=== PATIENT | female | born 1950 | race Caucasian/White ===

== ENCOUNTER → 2017-11-04 | Outpatient (CLI) | payer MEDICARE, BC ==
--- NOTE | 2017-11-08 08:47 | MM ---
Reason for exam: screening (asymptomatic). Last mammogram was performed 8 years and 8 months ago. History: Patient is postmenopausal. Physical Findings: A clinical breast exam by your physician is recommended on an annual basis and results should be correlated with mammographic findings. MG 3D Screening Mammo W/Cad Bilateral CC and MLO view(s) were taken. Prior study comparison: March 14, 2009, bilateral digital screening mammogram. January 12, 2005, mammogram, performed at [facility]. The breast tissue is heterogeneously dense. This may lower the sensitivity of mammography. No suspicious abnormality. ASSESSMENT: Negative, BI-RAD 1 RECOMMENDATION: Routine screening mammogram of both breasts in 1 year.
== END | disposition home or self-care (01) ==
LOC: RADMAMWWP 14:54
PROVIDERS: ATTEND Family Medicine
DX: Z12.31 Encounter for screening mammogram for malignant neoplasm of breast (principal)
CPT/HCPCS: 77063; G0202

== ENCOUNTER → 2018-11-21 | Outpatient (CLI) | payer MEDICARE ==
--- NOTE | 2018-11-25 10:39 | MM ---
Reason for exam: screening (asymptomatic). Last mammogram was performed 1 year and 1 month ago. History: Patient is postmenopausal. MG 3D Screening Mammo W/Cad Bilateral CC and MLO view(s) were taken. Prior study comparison: November 04, 2017, bilateral MG 3d screening mammo w/cad. March 14, 2009, bilateral digital screening mammogram. The breast tissue is heterogeneously dense. This may lower the sensitivity of mammography. There are benign-appearing round bilateral breast calcifications. No discrete abnormality. ASSESSMENT: Benign, BI-RAD 2 RECOMMENDATION: Routine screening mammogram of both breasts in 1 year.
== END ==
LOC: RADMAMWWP 08:07
PROVIDERS: ATTEND Family Medicine
DX: Z12.31 Encounter for screening mammogram for malignant neoplasm of breast (principal)
CPT/HCPCS: 77063; 77067

== ENCOUNTER → 2019-12-20 | Outpatient (CLI) | payer MEDICARE ==
--- NOTE | 2019-12-24 09:04 | MM ---
Reason for exam: screening (asymptomatic). Last mammogram was performed 1 year and 1 month ago. History: Patient is postmenopausal. Physical Findings: A clinical breast exam by your physician is recommended on an annual basis and results should be correlated with mammographic findings. MG 3D Screening Mammo W/Cad Bilateral CC and MLO view(s) were taken. Prior study comparison: November 21, 2018, bilateral MG 3d screening mammo w/cad. November 04, 2017, bilateral MG 3d screening mammo w/cad. The breast tissue is heterogeneously dense. This may lower the sensitivity of mammography. No significant changes when compared with prior studies. ASSESSMENT: Benign, BI-RAD 2 RECOMMENDATION: Routine screening mammogram of both breasts in 1 year.
== END | disposition home or self-care (01) ==
LOC: RADMAMWWP 13:25
PROVIDERS: ATTEND Family Medicine
DX: Z12.31 Encounter for screening mammogram for malignant neoplasm of breast (principal)
CPT/HCPCS: 77063; 77067

== ENCOUNTER → 2021-07-02 | Outpatient (CLI) | payer MEDICARE ==
[~2021-07-02] MED LIST: DENOSUMAB 60 MG/ML 1 ML SYRINGE SQ ONE
[2021-07-02 10:37] VITALS: BP 146/85; PULSE 67; RESP 16; TEMP 97.9
== END ==
LOC: PROCWHC3 10:06
PROVIDERS: ATTEND Family Medicine
DX: M81.0 Age-related osteoporosis without current pathological fracture (principal)
CPT/HCPCS: 96372; J0897

== ENCOUNTER 2022-02-14 10:48 | Emergency (ER) | payer MEDICARE ==
[2022-02-14 10:57] VITALS: TEMP 97
--- NOTE | 2022-02-14 11:56 | XR ---
EXAMINATION TYPE: XR chest 2V DATE OF EXAM: 02/14/2022 CLINICAL HISTORY: Fall with chest and sternal pain. TECHNIQUE: Frontal and lateral views of the chest are obtained. COMPARISON: Chest x-ray April 13, 2010 FINDINGS: Mild left basilar linear scarring redemonstrated. There is no new suspicious focal air spac e opacity, pleural effusion, or pneumothorax seen. The cardiac silhouette size remains within normal limits. The osseous structures are demineralized. IMPRESSION: Mild left basilar linear scarring. No acute process identified.
--- NOTE | 2022-02-14 12:05 | ED ---
Fall HPI - General Chief Complaint: Fall Stated Complaint: fall & SOB Time Seen by Provider: 02/14/22 11:33 Source: patient, family, old records reviewed Mode of arrival: ambulatory - History of Present Illness Initial Comments: Patient is a 72-year-old female presents today with complaints of substernal discomfort and difficulty breathing. Patient reports that she fell after standing on her countertop while hanging curtains on . She reports that her sternum in the front of her chest struck the edge of the countertop. She reports it took her breath away at the moment. She was able to move her arms and denies any back or lower rib pain. Patient states today she woke up felt more short of breath and decided to come to the emergency department. She reports pain with palpation over the sternum. She denies any abdominal discomfort, changes in stools or vomiting. - Related Data Home Medications Medication Instructions Recorded Confirmed Calcium Carbonate/Vitamin D3 1 tab PO DAILY 07/02/21 07/02/21 [Calcium 500-Vit D3 5 Mcg (200 Iu)] Irbesartan/Hydrochlorothiazide 1 tab PO RT-HS 07/02/21 07/02/21 [Irbesartan-Hctz 150-12.5 mg Tb] Multivitamin [Multivitamins Adult 1 tab PO DAILY 07/02/21 07/02/21 Gummies] Previous Rx's Medication Instructions Recorded methylPREDNISolone Dose Pack 4 mg PO DIRECTED #21 tab 02/14/22 [Medrol Dose Pack] Allergies Allergy/AdvReac Type Severity Reaction Status Date / Time No Known Allergies Allergy Verified 02/14/22 10:57 Review of Systems ROS Statement: Those systems with pertinent positive or pertinent negative responses have been documented in the HPI. ROS Other: All systems not noted in ROS Statement are negative. Past Medical History Past Medical History: Hypertension Additional Past Medical History / Comment(s): Osteoporosis History of Any Multi-Drug Resistant Organisms: None Reported Past Surgical History: Joint Replacement, Orthopedic Surgery, Tubal Ligation Past Anesthesia/Blood Transfusion Reactions: No Reported Reaction Past Psychological History: No Psychological Hx Reported Smoking Status: Never smoker Past Alcohol Use History: None Reported Past Drug Use History: None Reported General Exam - General Exam Comments Initial Comments: Ur and oriented 9-year-old female. No acute distress. Limitations: no limitations General appearance: alert, in no apparent distress Head exam: Present: atraumatic, normocephalic, normal inspection Eye exam: Present: normal appearance, PERRL, EOMI. Absent: scleral icterus, conjunctival injection, periorbital swelling ENT exam: Present: normal exam, mucous membranes moist Neck exam: Present: normal inspection. Absent: tenderness, meningismus, lymphadenopathy Respiratory exam: Absent: normal lung sounds bilaterally (Patient has normal lung sounds throughout. Patient has tenderness to palpation over the mid sternum. No significant bruising noted.), respiratory distress, wheezes, rales, rhonchi, stridor Cardiovascular Exam: Present: regular rate, normal rhythm, normal heart sounds. Absent: systolic murmur, diastolic murmur, rubs, gallop, clicks GI/Abdominal exam: Present: soft, normal bowel sounds. Absent: distended, tenderness, guarding, rebound, rigid Back exam: Present: normal inspection Neurological exam: Present: alert, oriented X3, CN II-XII intact Psychiatric exam: Present: normal affect, normal mood Skin exam: Present: warm Course Vital Signs 02/14/22 02/14/22 10:52 15:07 Temperature 97.0 F L Pulse Rate 67 66 Respiratory 18 12 Rate Blood Pressure 162/84 153/93 O2 Sat by Pulse 95 97 Oximetry Medical Decision Making - Medical Decision Making 72-year-old female presents to the ER with complaints of substernal pain after fall on . She was cleaning and hanging curtains and fell after sitting on the counter top and struck the chest to the counter. Initial review of her x-rays concern for possible sternal fracture. Patient vital signs are stable. Labs and EKG reviewed and unremarkable. Patient did have a CT of the chest showing no evidence of rib fracture or sternal fracture. There is some basilar scarring. Patient was discharged with incentive spirometer and will be prescribed anti-inflammatory medication Medrol Dosepak for concern for costochondritis and sternal cartilage inflammation. Advised following up with primary care doctor within the week. - Lab Data Result diagrams: 02/14/22 12:39 02/14/22 12:39 Lab Results 02/14/22 02/14/22 02/14/22 Range/Units 12:39 12:39 12:39 WBC 8.0 (3.8-10.6) k/uL RBC 4.78 (3.80-5.40) m/uL Hgb 14.1 (11.4-16.0) gm/dL Hct 46.0 (34.0-46.0) % MCV 96.2 (80.0-100.0) fL MCH 29.5 (25.0-35.0) pg MCHC 30.6 L (31.0-37.0) g/dL RDW 13.4 (11.5-15.5) % Plt Count 247 (150-450) k/uL MPV 7.7 Neutrophils % 55 % Lymphocytes % 31 % Monocytes % 6 % Eosinophils % 4 % Basophils % 1 % Neutrophils # 4.5 (1.3-7.7) k/uL Lymphocytes # 2.5 (1.0-4.8) k/uL Monocytes # 0.4 (0-1.0) k/uL Eosinophils # 0.3 (0-0.7) k/uL Basophils # 0.1 (0-0.2) k/uL PT 9.9 (9.0-12.0) sec INR 0.9 (<1.2) APTT 26.9 (22.0-30.0) sec Sodium 138 (137-145) mmol/L Potassium 3.9 (3.5-5.1) mmol/L Chloride 103 (98-107) mmol/L Carbon Dioxide 26 (22-30) mmol/L Anion Gap 9 mmol/L BUN 21 H (7-17) mg/dL Creatinine 0.64 (0.52-1.04) mg/dL Est GFR (CKD-EPI)AfAm >90 (>60 ml/min/1.73 sqM) Est GFR (CKD-EPI)NonAf >90 (>60 ml/min/1.73 sqM) Glucose 112 H (74-99) mg/dL Calcium 9.4 (8.4-10.2) mg/dL Total Bilirubin 1.5 H (0.2-1.3) mg/dL AST 41 H (14-36) U/L ALT 25 (4-34) U/L Alkaline Phosphatase 80 (38-126) U/L Total Protein 7.6 (6.3-8.2) g/dL Albumin 4.4 (3.5-5.0) g/dL 02/14/22 12:55 EKG performed at 1245 shows sinus rhythm 65 bpm. Was 175 ms. QS duration 77 ms. QT QTc is 410/421 ms. - Radiology Data Radiology results: report reviewed Mild left basilar linear scarring redemonstrated. No suspicious focal airspace opacity, pleural effusion or pneumothorax seen. Cardiac silhouette size remains within normal limits. I see structures or edema generalized. Overall impr ession is mild left basilar linear scarring. No acute process identified. CT chest without contrast shows thoracic compression fractures of uncertain age. No acute lung disease. General spurring noted and thoracic spine. There is 30% wedging of T8 vertebra. There is 50% wedging of T11 vertebrae. Sternum is intact. Upper abdominal soft tissues are intact. No rib fracture seen. Disposition Clinical Impression: Contusion of sternum, Compression deformity of vertebra, Shortness of breath, Costochondritis Disposition: HOME SELF-CARE Condition: Good Instructions (If sedation given, give patient instructions): How to Use an Incentive Spirometer (ED), Costochondritis (ED), Fall Prevention (ED) Additional Instructions: Use the incentive spirometer as discussed. Patient to take anti-inflammatory medicine as prescribed. Follow-up with her primary care doctor within the week. Return to the emergency department if any alarming signs or symptoms occur. Prescriptions: methylPREDNISolone Dose Pack [Medrol Dose Pack] 4 mg PO DIRECTED #21 tab Is patient prescribed a controlled substance at d/c from ED?: No Referrals: Eric Walker DO [Primary Care Provider] - 1-2 days Time of Disposition: 15:03
[2022-02-14] MEDS ORDERED: RX INFO: IV CONTRAST WAS GIVEN 1 EACH MISC MISCELLANE PRN (12:33)
[2022-02-14 12:48] LABS: Basophils # (A) 0.1 k/uL (0-0.2); Basophils % (A) 1 %; Eosinophils # (A) 0.3 k/uL (0-0.7); Eosinophils % (A) 4 %; HGB 14.1 gm/dL (11.4-16.0); Lymphocytes # (A) 2.5 k/uL (1.0-4.8); Lymphocytes % (A) 31 %; MCH 29.5 pg (25.0-35.0); MCHC 30.6 g/dL (31.0-37.0); MCV 96.2 fL (80.0-100.0); Mean Platelet Volume 7.7; Monocytes # (A) 0.4 k/uL (0-1.0); Monocytes % (A) 6 %; Neutrophils # (A) 4.5 k/uL (1.3-7.7); Neutrophils % (A) 55 %; Platelet Count 247 k/uL (150-450); RBC 4.78 m/uL (3.80-5.40); RDW 13.4 % (11.5-15.5)
[2022-02-14] MEDS ORDERED: MORPHINE SULFATE 2 MG/ML SYRINGE IVP ONE (12:48)
[2022-02-14 13:01] LABS: ALT 25 U/L (4-34); AST 41 U/L (14-36); African American GFR (CKD) >90 (>60 ml/min/1.73 sqM); Albumin 4.4 g/dL (3.5-5.0); Alkaline Phosphatase 80 U/L (38-126); Anion Gap 9 mmol/L; Blood Urea Nitrogen 21 mg/dL (7-17); Calcium 9.4 mg/dL (8.4-10.2); Carbon Dioxide 26 mmol/L (22-30); Chloride 103 mmol/L (98-107); Glucose 112 mg/dL (74-99); Non-African American GFR(CKD) >90 (>60 ml/min/1.73 sqM); Potassium 3.9 mmol/L (3.5-5.1); Sodium 138 mmol/L (137-145); Total Bilirubin 1.5 mg/dL (0.2-1.3); Total Protein 7.6 g/dL (6.3-8.2)
[2022-02-14 13:10] LABS: INR 0.9 (<1.2); Partial Thromboplastin Time 26.9 sec (22.0-30.0); Prothrombin Time 9.9 sec (9.0-12.0)
--- NOTE | 2022-02-14 14:46 | CT ---
EXAMINATION TYPE: CT chest w con DATE OF EXAM: 02/14/2022 COMPARISON: None HISTORY: Sternal pain after fall CT DLP: 374 mGycm Automated exposure control for dose reduction was used. CONTRAST: Performed with IV Contrast, patient injected with 100 mL of Isovue 300. There is some mild atelectasis at the lung bases bilaterally. Heart size is normal. There is no peric ardial effusion. No pneumothorax. There is no mediastinal adenopathy. There are no hilar masses. Thoracic aorta is intact. No aneurysm or dissection. The ascending aorta measures 3.5 cm. There is degenerative spurring in the thoracic spine. There is 30% wedging of a T8 vertebra. There is 15% wedging of T11 vertebra. Sternum is intact. Upper abdominal soft tissues are intact. No rib frac ture seen. Shoulder joints appear intact. IMPRESSION: Thoracic compression fractures of uncertain age. No acute lung disease.
[2022-02-14] MEDS ORDERED: ACET/COD 300 MG/30 MG STARTER PACK 6 TAB BTL PO STA (15:02)
[2022-02-14 15:08] VITALS: BP 153/93; PULSE 66; RESP 12
== END 2022-02-14 15:29 | disposition home or self-care (01) ==
LOC: EC 10:48
DX: S22.060A Wedge compression fracture of T7-T8 vertebra, initial encounter for closed fracture (principal); S22.080A Wedge compression fracture of T11-T12 vertebra, initial encounter for closed fracture; S20.219A Contusion of unspecified front wall of thorax, initial encounter; M94.0 Chondrocostal junction syndrome [Tietze]; I10 Essential (primary) hypertension; Z79.899 Other long term (current) drug therapy; W17.89XA Other fall from one level to another, initial encounter
CPT/HCPCS: 36415; 93005; 80053; 85025; 85610; 85730; 71046; 71260; 99284; Q9967

== ENCOUNTER → 2022-08-05 | Outpatient (CLI) | payer MEDICARE ==
--- NOTE | 2022-08-06 07:25 | MM ---
Reason for Exam: Screening (asymptomatic). Last mammogram was performed 2 year(s) and 7 month(s) ago. Patient History: Menarche at age 15. First Full-Term at age 22. Postmenopausal. 1979, Benign Excisional Biopsy on the right side. Risk Values: María 5 year model risk: 1.8%. NCI Lifetime model risk: 5.3%. Prior Study Comparison: 11/04/2017 Bilateral Screening Mammogram, [facility]. 11/21/2018 Bilateral Screening Mammogram, [facility]. 12/20/2019 Bilateral Screening Mammogram, [facility]. Tissue Density: The breast tissue is heterogeneously dense. This may lower the sensitivity of mammography. Findings: Analyzed By CAD. There is no suspicious group of microcalcifications or new suspicious mass in either breast. Overall Assessment: Negative, BI-RAD 1 Management: Screening Mammogram of both breasts in 1 year. A clinical breast exam by your physician is recommended on an annual basis and results should be correlated with mammographic findings. Electronically signed and approved by: Abbe Rouse M.D. Radiologis
== END | disposition home or self-care (01) ==
LOC: RADMAMWWP 14:14
PROVIDERS: ATTEND Family Medicine
DX: Z12.31 Encounter for screening mammogram for malignant neoplasm of breast (principal); Z78.0 Asymptomatic menopausal state
CPT/HCPCS: 77063; 77067

== ENCOUNTER 2022-11-10 08:50 | Day surgery (SDC) | payer MEDICARE ==
--- NOTE | 2022-11-10 08:45 | P.GSHP ---
History of Present Illness H&P Date: 11/10/22 CHIEF COMPLAINT: Colon screen HISTORY OF PRESENT ILLNESS: The patient is a 72-year-old female who presents for colon screen. Lower endoscopy was offered for further evaluation and management. PAST MEDICAL HISTORY: Please see list. PAST SURGICAL HISTORY: Please see list. MEDICATIONS: Please see list. ALLERGIES: Please see list. SOCIAL HISTORY: No illicit drug use FAMILY HISTORY: No reports of Crohn disease or ulcerative colitis. REVIEW OF ORGAN SYSTEMS: CONSTITUTIONAL: No reports of fevers or chills. PHYSICAL EXAM: VITAL SIGNS: Stable GENERAL: Well-developed pleasant in no acute distress. HEENT: No scleral icterus. Extraocular movements grossly intact. Moist buccal mucosa. NECK: Supple without lymphadenopathy. CHEST: Unlabored respirations. Equal bilateral excursions. CARDIOVASCULAR: Regular rate and rhythm. Distal 2+ pulses. ABDOMEN: Soft, nontender, nondistended. MUSCULOSKELETAL: No clubbing, cyanosis, or edema. ASSESSMENT: 1. Colon screen. PLAN: 1. Recommend proceeding with a lower endoscopy Past Medical History Past Medical History: Hypertension Additional Past Medical History / Comment(s): Osteoporosis, hx. colon polyps, chronic diarrhea recently but has lessened recently History of Any Multi-Drug Resistant Organisms: None Reported Past Surgical History: Cholecystectomy, Joint Replacement, Orthopedic Surgery, Tubal Ligation Additional Past Surgical History / Comment(s): left knee replaced, ORIF right wrist, colonoscopy Past Anesthesia/Blood Transfusion Reactions: No Reported Reaction Smoking Status: Never smoker Medications and Allergies Home Medications Medication Instructions Recorded Confirmed Type Calcium Carbonate/Vitamin D3 1 tab PO DAILY 07/02/21 11/05/22 History [Calcium 500-Vit D3 5 Mcg (200 Iu)] Multivitamin [Multivitamins Adult 1 tab PO DAILY 07/02/21 11/05/22 History Gummies] Cholecalciferol [Vitamin D3 (25 25 mcg PO DAILY 11/05/22 11/05/22 History Mcg = 1000 Iu)] Cyanocobalamin (Vitamin B-12) 1,000 mcg PO DAILY 11/05/22 11/05/22 History [Vitamin B-12] Irbesartan/Hydrochlorothiazide 1 each PO HS 11/05/22 11/05/22 History [Irbesartan-Hctz 300-12.5 mg Tb] [place]-3/Dha/Epa/Fish Oil [Fish Oil 1 each PO DAILY 11/05/22 11/05/22 History 1,000 mg Softgel] Vitamin B Complex 1 each PO DAILY 11/05/22 11/05/22 History Allergies Allergy/AdvReac Type Severity Reaction Status Date / Time No Known Allergies Allergy Verified 11/05/22 15:28
[~2022-11-10 08:50] MED LIST changes: -DENOSUMAB 60 MG/ML 1 ML SYRINGE SQ ONE; +LACTATED RINGERS 1,000 ML IV SCH; +LIDOCAINE 1% (10MG/ML) FOR IV START INTRADERMA PRN; +ONDANSETRON 4 MG/2 ML VIAL IVP PRN
[2022-11-10 09:12] VITALS: TEMP 97.8
[2022-11-10] MEDS ORDERED: LACTATED RINGERS 1,000 ML IV ONE (09:20)
[2022-11-10] MEDS ORDERED: PROPOFOL 10 MG/ML 20 ML VIAL IV ONE (10:17)
--- NOTE | 2022-11-10 10:46 | P.PCN ---
Date of Procedure: 11/10/22 Description of Procedure: PREOPERATIVE DIAGNOSIS: Personal history of colon polyps Colonoscopy screening POSTOPERATIVE DIAGNOSIS: Tubular adenoma sigmoid colon Tubular adenoma transverse colon Sigmoid diverticulosis Internal hemorrhoids, grade 3 OPERATION: Colonoscopy to the ileocecal valve and appendiceal orifice, cecum Colonoscopy with hot snare polypectomy SURGEON: Kimmie Lora MD. ANESTHESIA: MAC. INDICATIONS: The patient is an 72-year-old female who presents personal history of colon polyps. Last colonoscopy 5 years. Benefits and risks were described and informed consent was obtained. DESCRIPTION OF PROCEDURE: The patient had undergone Sutab prep. The patient had been brought into the operating room and laid in the left lateral decubitus position. After adequate intravenous sedation, the rectum was examined with 2% lidocaine jelly. External hemorrhoids were encountered. The rectal tone was within normal limits. No lesions were palpated in the rectal vault. An Olympus colonoscope was advanced until the cecum, ileocecal valve and appendiceal orifice were clearly viewed. The prep was excellent. Sigmoid diverticulosis was encountered. Colonic polyps were found and removed. No evidence of focal colitis was found. Retroflexion of the scope demonstrated grade 3 internal hemorrhoids without active bleeding or inflammation. The colon was desufflated. The patient had tolerated the procedure well. Withdrawal time was over 6 minutes. FINDINGS: Aronchick preparation quality scale 1+ (1-5) Internal hemorrhoids, grade 3 External hemorrhoids, grade 3. No arteriovenous malformations. Sigmoid diverticulosis Removal of 2 polyps: - Snare polypectomy 20 cm from the anal verge, 6 mm tubulovillous adenoma polyp. - Snare polypectomy transverse colon, 8 mm flat villous adenoma polyp. No focal colitis. RECOMMENDATIONS: Given severity of tubular adenomas, repeat colonoscopy in 3 years, 2025 Plan - Discharge Summary Discharge Rx Participant: No New Discharge Prescriptions: Continue Calcium Carbonate/Vitamin D3 [Calcium 500-Vit D3 5 Mcg (200 Iu)] 1 tab PO DAILY Vitamin B Complex 1 each PO DAILY Irbesartan/Hydrochlorothiazide [Irbesartan-Hctz 300-12.5 mg Tb] 1 each PO HS Multivitamin [Multivitamins Adult Gummies] 1 tab PO DAILY Cholecalciferol [Vitamin D3 (25 Mcg = 1000 Iu)] 25 mcg PO DAILY [place]-3/Dha/Epa/Fish Oil [Fish Oil 1,000 mg Softgel] 1 each PO DAILY Cyanocobalamin (Vitamin B-12) [Vitamin B-12] 1,000 mcg PO DAILY Discharge Medication List Calcium Carbonate/Vitamin D3 [Calcium 500-Vit D3 5 Mcg (200 Iu)] 1 tab PO DAILY 07/02/21 [History] Multivitamin [Multivitamins Adult Gummies] 1 tab PO DAILY 07/02/21 [History] Cholecalciferol [Vitamin D3 (25 Mcg = 1000 Iu)] 25 mcg PO DAILY 11/05/22 [History] Cyanocobalamin (Vitamin B-12) [Vitamin B-12] 1,000 mcg PO DAILY 11/05/22 [History] Irbesartan/Hydrochlorothiazide [Irbesartan-Hctz 300-12.5 mg Tb] 1 each PO HS 11/05/22 [History] [place]-3/Dha/Epa/Fish Oil [Fish Oil 1,000 mg Softgel] 1 each PO DAILY 11/05/22 [History] Vitamin B Complex 1 each PO DAILY 11/05/22 [History] Follow up Appointment(s)/Referral(s): Kimmie Lora MD [STAFF PHYSICIAN] - As Needed Patient Instructions/Handouts: Diverticulosis Diet (GEN), Diverticulosis (DC), Colorectal Polyps (GEN) Activity/Diet/Wound Care/Special Instructions: Repeat colonoscopy in 3 years, 2025 Discharge Disposition: HOME SELF-CARE
[2022-11-10 11:13] VITALS: BP 125/80; PULSE 75; RESP 20
== END 2022-11-10 11:17 | disposition home or self-care (01) ==
LOC: ORWHC2ENDO 08:50
PROVIDERS: ATTEND Surgery Plastic and Reconstructive Surgery
DX: Z12.11 Encounter for screening for malignant neoplasm of colon (principal); D12.3 Benign neoplasm of transverse colon; D12.5 Benign neoplasm of sigmoid colon; K57.30 Diverticulosis of large intestine without perforation or abscess without bleeding; K64.2 Third degree hemorrhoids; K64.8 Other hemorrhoids; I10 Essential (primary) hypertension; Z86.010 Personal history of colon polyps; Z79.899 Other long term (current) drug therapy; Z98.51 Tubal ligation status; Z90.49 Acquired absence of other specified parts of digestive tract
CPT/HCPCS: 88305; 45385; J2704

== ENCOUNTER → 2023-11-04 | Outpatient (CLI) | payer MEDICARE ==
--- NOTE | 2023-11-04 13:21 | MM ---
Reason for Exam: Screening (asymptomatic). Last mammogram was performed 1 year(s) and 3 month(s) ago. Patient History: Menarche at age 15. First Full-Term at age 22. Postmenopausal. 1979, Benign Excisional Biopsy on the right side. Risk Values: María 5 year model risk: 1.8%. NCI Lifetime model risk: 5.1%. Prior Study Comparison: 11/21/2018 Bilateral Screening Mammogram, [facility]. 12/20/2019 Bilateral Screening Mammogram, [facility]. 08/05/2022 Bilateral MG 3D screening mammo w/cad, [facility]. Tissue Density: The breast tissue is heterogeneously dense. This may lower the sensitivity of mammography. Findings: Analyzed By CAD. Right breast biopsy clip. There is no suspicious group of microcalcifications or new suspicious mass. Benign-appearing calcifications bilaterally. Overall Assessment: Benign, BI-RAD 2 Management: Screening Mammogram of both breasts in [address] [facility] will attempt to contact patient to return for supplemental views and ultrasound if indicated. Patient should continue monthly self-breast exams. A clinical breast exam by your physician is recommended on an annual basis. This exam should not preclude additional follow-up of suspicious palpable abnormalities. Note on María scores and lifetime risk: 1. A María score greater than 3% is considered moderate risk. If this is the case, consider specialist referral to assess eligibility for a risk reducing agent. 2. If overall lifetime risk for the development of breast cancer is 20% or higher, the patient may qualify for future screening with alternating mammogram and breast MRI. Electronically signed and approved by: Miky Muir DO
== END | disposition home or self-care (01) ==
LOC: RADMAMWWP 10:47
PROVIDERS: ATTEND Family Medicine
DX: Z12.31 Encounter for screening mammogram for malignant neoplasm of breast (principal); Z78.0 Asymptomatic menopausal state
CPT/HCPCS: 77063; 77067

== ENCOUNTER 2024-11-25 22:07 | Inpatient (IN) | payer MEDICARE ==
--- NOTE | 2024-11-25 22:22 | ED ---
Abdominal Pain HPI - General Stated Complaint: abd pain Time Seen by Provider: 11/25/24 22:21 Source: RN notes reviewed, old records reviewed Mode of arrival: ambulatory Limitations: no limitations - History of Present Illness Initial Comments: This is a 74-year-old female to ER for severe sudden onset abdominal pain right lower quadrant abdominal pain abdominal pain epigastric positive nausea no vomiting change in bowel movements lately with increasing diarrhea. Increasing diarrhea with severe pain. Pain is uncontrolled, patient unable to get comfortable. Patient does have history of gallbladder surgery MD Complaint: abdominal pain -: hour(s) Location: RLQ, suprapubic Radiation: RLQ, suprapubic, R flank Migration to: epigastric Severity: moderate Severity scale (1-10): 7 Quality: fullness Consistency: constant Improves With: nothing Worsens With: nothing Associated Symptoms: nausea, vomiting Treatments Prior to Arrival: other (0) - Related Data Home Medications Medication Instructions Recorded Confirmed Cholecalciferol [Vitamin D3 (25 25 mcg PO DAILY 11/05/22 11/26/24 Mcg = 1000 Iu)] Irbesartan/Hydrochlorothiazide 1 tab PO HS 11/05/22 11/26/24 [Irbesartan-Hctz 300-12.5 mg Tb] Calcium Carbonate [Calcium] 1,200 mg PO DAILY 11/26/24 11/26/24 Multivitamins, Thera [Multivitamin 1 tab PO DAILY 11/26/24 11/26/24 (formulary)] Previous Rx's Medication Instructions Recorded Docusate [Colace] 100 mg PO BID #60 cap 11/30/24 Magnesium Hydroxide [Milk of 2,400 mg PO BID PRN #0 ml 11/30/24 Magnesia] Allergies Allergy/AdvReac Type Severity Reaction Status Date / Time No Known Allergies Allergy Verified 11/26/24 10:28 Review of Systems ROS Statement: Those systems with pertinent positive or pertinent negative responses have been documented in the HPI. ROS Other: All systems not noted in ROS Statement are negative. Past Medical History Past Medical History: Hypertension Additional Past Medical History / Comment(s): Osteoporosis, hx. colon polyps, chronic diarrhea recently but has lessened recently History of Any Multi-Drug Resistant Organisms: None Reported Past Surgical History: Cholecystectomy, Joint Replacement, Orthopedic Surgery, Tubal Ligation Additional Past Surgical History / Comment(s): left knee replaced, ORIF right wrist, colonoscopy Past Anesthesia/Blood Transfusion Reactions: No Reported Reaction Smoking Status: Never smoker - Past Family History Father Family Medical History: Cancer (Biliary duct carcinoma) General Exam General appearance: alert, in no apparent distress, anxious Head exam: Present: atraumatic, normocephalic, normal inspection Eye exam: Present: normal appearance, PERRL, EOMI. Absent: scleral icterus, conjunctival injection, periorbital swelling ENT exam: Present: normal exam, mucous membranes moist Neck exam: Present: normal inspection. Absent: tenderness, meningismus, lymphadenopathy Respiratory exam: Present: normal lung sounds bilaterally. Absent: respiratory distress, wheezes, rales, rhonchi, stridor Cardiovascular Exam: Present: regular rate, normal rhythm, normal heart sounds. Absent: systolic murmur, diastolic murmur, rubs, gallop, clicks GI/Abdominal exam: Present: distended, tenderness, normal bowel sounds. Absent: guarding, rebound, rigid Extremities exam: Present: normal inspection, full ROM, normal capillary refill. Absent: tenderness, pedal edema, joint swelling, calf tenderness Back exam: Present: normal inspection Neurological exam: Present: alert, oriented X3, CN II-XII intact Psychiatric exam: Present: normal affect, normal mood Skin exam: Present: warm, dry, intact, normal color. Absent: rash Course Vital Signs 11/25/24 11/26/24 11/26/24 22:37 02:40 06:00 Temperature 97.4 F L Pulse Rate 93 84 75 Pulse Rate [ Radial] Respiratory 20 18 18 Rate Blood Pressure 133/90 128/80 133/89 Blood Pressure [Left Arm Sitting] O2 Sat by Pulse 96 95 96 Oximetry 11/26/24 11/26/24 11/26/24 09:00 10:00 16:05 Temperature 98 F 98.1 F Pulse Rate 92 Pulse Rate [ 69 Radial] Respiratory 18 15 Rate Blood Pressure 140/72 Blood Pressure 159/75 [Left Arm Sitting] O2 Sat by Pulse 96 96 Oximetry 11/26/24 11/26/24 11/26/24 16:16 16:36 16:38 Temperature Pulse Rate Pulse Rate [ 85 81 Radial] Respiratory 16 16 Rate Blood Pressure Blood Pressure 160/73 165/74 [Left Arm Sitting] O2 Sat by Pulse 97 97 Oximetry 11/26/24 20:27 Temperature 98.9 F Pulse Rate 88 Pulse Rate [ Radial] Respiratory 19 Rate Blood Pressure 151/85 Blood Pressure [Left Arm Sitting] O2 Sat by Pulse 95 Oximetry - Reevaluation(s) Reevaluation #1: 11/25/24 23:01 medical records reviewed Reevaluation #2: 11/26/24 00:10 Patient symptoms are improved Reevaluation #3: 11/26/24 00:11 Monitor results and questions answered Reevaluation #4: Was pt. sent in by a medical professional or institution (DALLIN Argueta, OIL WELL DIRECTIONAL SURVEYOR, urgent care, hospital, or assisted...) When possible be specific @ -no Did you speak to anyone other than the patient for history (EMS, parent, family, police, friend...)? What history was obtained from this source @ -no Did you review nursing and triage notes (agree or disagree)? Why? @ -agree Are old charts reviewed (outside hosp., previous admission, EMS record, old EKG, old radiological studies, urgent care reports/EKG's, assisted records)? Report findings @ -yes Differential Diagnosis (chest pain, altered mental status, abdominal pain women, abdominal pain men, vaginal bleeding, weakness, fever, dyspnea, syncope, hea dache, dizziness, GI bleed, back pain, seizure, CVA, palpatations, mental health, musculoskeletal)? @ -prior EKG interpreted by me (3pts min.). @ -yes X-rays interpreted by me (1pt min.). @ -no CT interpreted by me (1pt min.). @ -Yes positive for mesenteric edema, ascites U/S interpreted by me (1pt. min.). @ -no What testing was considered but not performed or refused? (CT, X-rays, U/S, labs )? Why? @ -none What meds were considered but not given or refused? Why? @ -none Did you discuss the management of the patient with other professionals (professionals i.e. DALLIN Argueta, [employer]IL WE[employer] DIRECTIONAL SURVEYOR, lab, RT, psych nurse, executive secretary social welfare, type cutter, teacher, payroll officer, case finisher)? Give summary @ -no Was smoking cessation discussed for >3mins.? @ -no Was critical care preformed (if so, how long)? @ -no Were there social determinants of health that impacted care today? How? (Homelessness, low income, unemployed, alcoholism, drug addiction, transportation, low edu. Level, literacy, decrease access to med. care, snf, rehab)? @ -none Was there de-escalation of care discussed even if they declined (Discuss DNR or withdrawal of care, Hospice)? DNR status @ -no What co-morbidities impacted this encounter? (DM, HTN, Smoking, COPD, CAD, Cancer, CVA, ARF, Chemo, Hep., AIDS, mental health diagnosis, sleep apnea, morbid obesity)? @ -none Was patient admitted / discharged? Hospital course, mention meds given and route, prescriptions, significant lab abnormalities, going to OR and other pertinent info. @ - 84 female to the ER for evaluation abdominal pain severe. Uncontrolled pain here in the ER CT concern for mesenteric edema patient will be admitted for pain control Admitted Undiagnosed new problem with uncertain prognosis? @ -no Drug Therapy requiring intensive monitoring for toxicity (Heparin, Nitro, Insulin, Cardizem)? @ -no Were any procedures done? @ -no Diagnosis/symptom? @ -Mesenteric edema ascites and uncontrolled abdominal pain Acute, or Chronic, or Acute on Chronic? @ -Acute Uncomplicated (without systemic symptoms) or Complicated (systemic symptoms)? @ -Complicated Side effects of treatment? @ -no Exacerbation, Progression, or Severe Exacerbation? @ -exacerbation Poses a threat to life or bodily function? How? (Chest pain, USA, SD, pneumonia, PE, COPD, DKA, ARF, appy, cholecystitis, CVA, Diverticulitis, Homicidal, Suicidal, threat to staff... and all critical care pts) @ -yes extremes of age Reevaluation #5: Differential Abdominal Pain Women: Appendicitis, Cholecystitis, diverticulosis, ischemic bowel, pancreatitis, hepatitis, UTI, gastroenteritis, AAA, incarcerated hernia, bowel obstruction, constipation, inflammatory bowel, hepatitis, peptic ulcer disease, splenic infarction, perforated viscus, vulvitis, ovarian torsion, PID, kidney stone, placenta abruption, this is not meant to be an all-inclusive list - Consultations Consultation #1: With [facility] who agrees to admit this patient Medical Decision Making - Medical Decision Making 84 female to the ER for evaluation abdominal pain severe. Uncontrolled pain here in the ER CT concern for mesenteric edema patient will be admitted for pain control - Lab Data Result diagrams: 11/29/24 05:18 11/29/24 05:18 Lab Results 11/25/24 11/25/24 11/25/24 Range/Units 22:50 22:50 22:50 WBC 7.9 (3.8-10.6) k/uL RBC 4.49 (3.80-5.40) m/uL Hgb 13.7 (11.4-16.0) gm/dL Hct 41.8 (34.0-46.0) % MCV 93.2 (80.0-100.0) fL MCH 30.5 (25.0-35.0) pg MCHC 32.7 (31.0-37.0) g/dL RDW 13.8 (11.5-15.5) % Plt Count 283 (150-450) k/uL MPV 7.8 Neutrophils % 71 % Lymphocytes % 22 % Monocytes % 4 % Eosinophils % 1 % Basophils % 1 % Neutrophils # 5.6 (1.3-7.7) k/uL Lymphocytes # 1.7 (1.0-4.8) k/uL Monocytes # 0.3 (0-1.0) k/uL Eosinophils # 0.1 (0-0.7) k/uL Basophils # 0.1 (0-0.2) k/uL PT 11.1 (10.0-12.5) sec INR 1.0 (<1.2) APTT 21.8 L (22.0-30.0) sec Sodium 136 L (137-145) mmol/L Potassium 3.8 (3.5-5.1) mmol/L Chloride 105 (98-107) mmol/L Carbon Dioxide 22 (22-30) mmol/L Anion Gap 9 mmol/L BUN 30 H (7-17) mg/dL Creatinine 0.63 (0.52-1.04) mg/dL Est GFR (CKD-EPI)AfAm >90 (>60 ml/min/1.73 sqM) Est GFR (CKD-EPI)NonAf 90 (>60 ml/min/1.73 sqM) Glucose 159 H (74-99) mg/dL Plasma Lactic Acid Louis (0.7-2.0) mmol/L Calcium 9.4 (8.4-10.2) mg/dL Total Bilirubin 0.7 (0.2-1.3) mg/dL AST 25 (14-36) U/L ALT 20 (4-34) U/L Alkaline Phosphatase 90 (38-126) U/L Total Protein 6.5 (6.3-8.2) g/dL Albumin 3.9 (3.5-5.0) g/dL Amylase 124 H (30-110) U/L Lipase 87 (23-300) U/L Urine Color Urine Appearance (Clear) Urine pH (5.0-8.0) Ur Specific [place] (1.001-1.035) Urine Protein (Negative) Urine Glucose (UA) (Negative) Urine Ketones (Negative) Urine Blood (Negative) Urine Nitrite (Negative) Urine Bilirubin (Negative) Urine Urobilinogen (<2.0) mg/dL Ur Leukocyte Esterase (Negative) Urine RBC (0-5) /hpf Urine WBC (0-5) /hpf Ur Squamous Epith Cells (0-4) /hpf Urine Bacteria (None) /hpf Hyaline Casts (0-2) /lpf Urine Mucus (None) /hpf 11/25/24 11/26/24 Range/Units 22:50 10:44 WBC (3.8-10.6) k/uL RBC (3.80-5.40) m/uL Hgb (11.4-16.0) gm/dL Hct (34.0-46.0) % MCV (80.0-100.0) fL MCH (25.0-35.0) pg MCHC (31.0-37.0) g/dL RDW (11.5-15.5) % Plt Count (150-450) k/uL MPV Neutrophils % % Lymphocytes % % Monocytes % % Eosinophils % % Basophils % % Neutrophils # (1.3-7.7) k/uL Lymphocytes # (1.0-4.8) k/uL Monocytes # (0-1.0) k/uL Eosinophils # (0-0.7) k/uL Basophils # (0-0.2) k/uL PT (10.0-12.5) sec INR (<1.2) APTT (22.0-30.0) sec Sodium (137-145) mmol/L Potassium (3.5-5.1) mmol/L Chloride (98-107) mmol/L Carbon Dioxide (22-30) mmol/L Anion Gap mmol/L BUN (7-17) mg/dL Creatinine (0.52-1.04) mg/dL Est GFR (CKD-EPI)AfAm (>60 ml/min/1.73 sqM) Est GFR (CKD-EPI)NonAf (>60 ml/min/1.73 sqM) Glucose (74-99) mg/dL Plasma Lactic Acid Louis 1.7 (0.7-2.0) mmol/L Calcium (8.4-10.2) mg/dL Total Bilirubin (0.2-1.3) mg/dL AST (14-36) U/L ALT (4-34) U/L Alkaline Phosphatase (38-126) U/L Total Protein (6.3-8.2) g/dL Albumin (3.5-5.0) g/dL Amylase (30-110) U/L Lipase (23-300) U/L Urine Color Yellow Urine Appearance Cloudy H (Clear) Urine pH 5.5 (5.0-8.0) Ur Specific [place] 1.027 (1.001-1.035) Urine Protein Negative (Negative) Urine Glucose (UA) Negative (Negative) Urine Ketones Negative (Negative) Urine Blood Negative (Negative) Urine Nitrite Negative (Negative) Urine Bilirubin Negative (Negative) Urine Urobilinogen <2.0 (<2.0) mg/dL Ur Leukocyte Esterase Small H (Negative) Urine RBC <1 (0-5) /hpf Urine WBC 6 H (0-5) /hpf Ur Squamous Epith Cells 1 (0-4) /hpf Urine Bacteria Many H (None) /hpf Hyaline Casts 1 (0-2) /lpf Urine Mucus Rare H (None) /hpf - Radiology Data Radiology results: report reviewed (CT abdomen pelvis positive for mesenteric edema concern for ascites), image reviewed Disposition Clinical Impression: Abdominal pain Disposition: ADMITTED IP TO THIS HOSP Condition: Fair Is patient prescribed a controlled substance at d/c from ED?: No Time of Disposition: 00:10
[2024-11-25] MEDS: KETOROLAC 15 MG/ML 1 ML VIAL IVP STA (22:46)
[2024-11-25] MEDS: ONDANSETRON 4 MG/2 ML VIAL IVP STA (22:48)
[2024-11-25] MEDS: SODIUM CHLORIDE 0.9% 1,000 ML IV STA (22:48)
[2024-11-25] MEDS: HYDROmorphone 0.5 MG/0.5 ML SYRINGE IVP STA (22:54)
[2024-11-25 23:21] LABS: Basophils # (A) 0.1 k/uL (0-0.2); Basophils % (A) 1 %; Eosinophils # (A) 0.1 k/uL (0-0.7); Eosinophils % (A) 1 %; HCT 41.8 % (34.0-46.0); HGB 13.7 gm/dL (11.4-16.0); Lymphocytes # (A) 1.7 k/uL (1.0-4.8); Lymphocytes % (A) 22 %; MCH 30.5 pg (25.0-35.0); MCHC 32.7 g/dL (31.0-37.0); MCV 93.2 fL (80.0-100.0); Mean Platelet Volume 7.8; Monocytes # (A) 0.3 k/uL (0-1.0); Monocytes % (A) 4 %; Neutrophils # (A) 5.6 k/uL (1.3-7.7); Neutrophils % (A) 71 %; Platelet Count 283 k/uL (150-450); RBC 4.49 m/uL (3.80-5.40); RDW 13.8 % (11.5-15.5); WBC 7.9 k/uL (3.8-10.6)
--- NOTE | 2024-11-25 23:34 | CT ---
EXAMINATION TYPE: CT abdomen pelvis wo con DATE OF EXAM: 11/25/2024 HISTORY: RLQ abdominal pain that started this morning but went away, came back about 1 hour ago. N/V. Denies any CP, SOB, fevers. CT DLP: 2439.3 mGycm. Automated Exposure Control for Dose Reduction was Utilized. TECHNIQUE: CT scan of the abdomen and pelvis is performed without oral or IV contrast. COMPARISON: NONE FINDINGS: Within the limitations of a non-contrast study, the following observations are made. Subop timal with artifact from adjacent upper extremities LUNG BASES: No significant abnormality is appreciated. LIVER/GB: Cholecystectomy clips are seen. Trace adjacent ascites. Moderate extrahepatic biliary dilat ation up to 17 mm no yuriy hepatis coronal image 46. PANCREAS: No significant abnormality is seen. SPLEEN: Adjacent ascites. ADRENALS: No significant abnormality is seen. KIDNEYS: No renal stones or hydronephrosis. Likely simple 1.5 cm cortical cyst left kidney anteriorly as image 57 BOWEL: Suboptimal evaluation without enteric contrast. No abnormal small or large bowel dilatation. W andering cecum to the right midabdomen just below the liver. Appendix is nondilated. GENITAL ORGANS: Anteverted uterus projects to right of midline. LYMPH NODES: Some prominent but subcentimeter lymph nodes throughout the mesentery. OSSEOUS STRUCTURES: Slight scoliotic curvature. Mild height loss involving the L2 vertebra without li near lucency to suggest acute fracture. Similar finding involving T11 vertebra. Zrecjudh-rz-shcytn he ight loss involving T8 vertebra without linear lucency. OTHER: Moderate amount of free fluid in the pelvis. Moderate mesenteric edema with slight nodularity. Mild calcified plaque of the aorta extends into branch vessels. Small to moderate-sized fat-containi ng umbilical hernia sagittal image 74. IMPRESSION: Suboptimal study. 1. No bowel obstruction. No CT evidence for acute appendicitis. 2. Mild to moderate free fluid throughout the abdomen and pelvis. Moderate mesenteric edema. Slight n odularity, peritoneal neoplasm not entirely excluded. 3. Moderate extrahepatic biliary dilatation. Consider further workup with ERCP/MRCP. 4. Several compression type fractures favored chronic most prominent involving the T8 vertebra, corre late clinically. [facility], Workstation: [employer], 11/25/2024 11:32 PM
[2024-11-25 23:50] LABS: Prothrombin Time 11.1 sec (10.0-12.5)
[2024-11-25 23:54] LABS: ALT 20 U/L (4-34); AST 25 U/L (14-36); African American GFR (CKD) >90 (>60 ml/min/1.73 sqM); Albumin 3.9 g/dL (3.5-5.0); Alkaline Phosphatase 90 U/L (38-126); Amylase 124 U/L (30-110); Anion Gap 9 mmol/L; Blood Urea Nitrogen 30 mg/dL (7-17); Calcium 9.4 mg/dL (8.4-10.2); Carbon Dioxide 22 mmol/L (22-30); Chloride 105 mmol/L (98-107); Glucose 159 mg/dL (74-99); Lipase 87 U/L (23-300); Non-African American GFR(CKD) 90 (>60 ml/min/1.73 sqM); Potassium 3.8 mmol/L (3.5-5.1); Sodium 136 mmol/L (137-145); Total Bilirubin 0.7 mg/dL (0.2-1.3); Total Protein 6.5 g/dL (6.3-8.2)
[2024-11-25 23:57] LABS: Partial Thromboplastin Time 21.8 sec (22.0-30.0)
[2024-11-26] MEDS ORDERED: ONDANSETRON 4 MG/2 ML VIAL IVP PRN (00:09)
[2024-11-26] MEDS ORDERED: NALOXONE 0.4 MG/ML 1 ML VIAL IV PRN (00:09)
[2024-11-26] MEDS: SODIUM CHLORIDE 0.9% 1,000 ML IV SCH (03:04)
[2024-11-26] MEDS: PANTOPRAZOLE 40 MG/10 ML VIAL IV SCH ×2 (08:13→20:42)
[2024-11-26] MEDS: HYDROmorphone 0.5 MG/0.5 ML SYRINGE IVP PRN (08:18)
[2024-11-26 10:58] LABS: Appearance,Urine Cloudy (Clear); Bacteria,Urine Many /hpf; Bilirubin,Urine Negative (Negative); Blood,Urine Negative (Negative); Color,Urine Yellow; Glucose,Urine (UA) Negative (Negative); Hyaline Casts,Urine 1 /lpf (0-2); Ketones,Urine Negative (Negative); Leukocyte Esterase,Urine Small (Negative); Mucus,Urine Rare /hpf; Nitrite,Urine Negative (Negative); PH, Urine 5.5 (5.0-8.0); Protein,Urine Negative (Negative); RBC,Urine <1 /hpf (0-5); Specific Gravity,Urine 1.027 (1.001-1.035); Squamous Epithelial Cell,Urine 1 /hpf (0-4); Urobilinogen,Urine <2.0 mg/dL (<2.0); WBC,Urine 6 /hpf (0-5)
--- NOTE | 2024-11-26 13:13 | US ---
EXAMINATION TYPE: US abdomen complete DATE OF EXAM: 11/26/2024 COMPARISON: CT 11/25/2024 CLINICAL INDICATION: Female, 74 years old with history of ascites, dilated CBD; GB removed x >30 year s ago. TECHNIQUE: Grayscale and color Doppler imaging of the abdomen was performed. FINDINGS: EXAM MEASUREMENTS: Liver Length: 15.5 cm CBD: 0.9 cm, color Doppler imaging was utilized to isolate the common bile duct for measurement. CHD: 0.9 cm Spleen: 7.6 cm Right Kidney: 10.4 x 3.5 x 3.9 cm Left Kidney: 9.2 x 4.5 x 5.0 cm TRANSPORTATION JOB TITLES NOTES: Suboptimal due to overlying bowel gas Pancreas: Tail not well seen, main pancreatic duct = 3.0 mm Liver: Slight intrahepatic biliary dilatation at hilum. Gallbladder: Surgically absent Evidence for sonographic Santizo's sign: neg CBD: wnl Spleen: wnl Right Kidney: wnl, No hydronephrosis, calculi or masses seen Left Kidney: Cyst seen on CT not visualized on todays ultrasound, but could be due to overlying natividad l gas Upper IVC: wnl Abd Aorta: No AAA visualized at time of scan Small amount of ascites seen adjacent to liver and spleen IMPRESSION: 1. Gallbladder surgically absent which likely accounts for the mild intra and extra hepatic biliary d uctal dilation. 2. Small amount of ascites. 3. Lesion involving the left kidney reported by previous CT scan not seen on today's ultrasound which likely secondary to overlying bowel gas. [facility], , 11/26/2024 1:10 PM
--- NOTE | 2024-11-26 14:38 | P.GSCN ---
History of Present Illness Consult date: 11/26/24 History of present illness: CHIEF COMPLAINT: Abdominal pain HISTORY OF PRESENT ILLNESS: This is a 74-year-old female who presented to the hospital with complaints of epigastric abdominal pain that started around 3:00 last night. Patient reports having vomiting as well as decreased appetite. She reports diarrhea but this is a chronic issue for her. She reports no changes in the diarrhea. Denies any blood in the stool. She denies any fevers. She does admit to having some chills and sweats. Her last colonoscopy was 5 years ago with colon polyps removed. She denies any prior history of EGD. She does have a history of cholecystectomy and tubal ligation. CT scan abdomen and pelvis reports no bowel obstruction. No acute appendicitis. Mild to moderate free fluid throughout the abdomen and pelvis. Moderate mesenteric edema. Slight nodularity peritoneal neoplasm not entirely excluded. Moderate extrahepatic biliary dilatation. Several compression type fractures chronic involving T8 vertebra. Patient denies any cancer history. She denies any cardiac history. PAST MEDICAL HISTORY: Hypertension, osteoporosis, chronic diarrhea PAST SURGICAL HISTORY: Cholecystectomy, tubal ligation MEDICATIONS: See below ALLERGIES: See below SOCIAL HISTORY: No illicit drug use. REVIEW OF SYSTEMS: CONSTITUTIONAL: Denies fever or chills. HEENT: Denies blurred vision, vision changes, or eye pain. Denies hemoptysis CARDIOVASCULAR: Denies chest pain or pressure. RESPIRATORY: No shortness of breath. GASTROINTESTINAL: See HPI for pertinent findings HEMATOLOGIC: Denies bleeding disorders. GENITOURINARY: Denies any blood in urine or increased urinary frequency. SKIN: Denies pruitis. Denies rash. PHYSICAL EXAM: VITAL SIGNS: Reviewed GENERAL: Well-developed in no acute distress. HEENT: No sclera icterus. Extraocular movements grossly intact. Moist buccal mucosa. Head is atraumatic, normocephalic. No nasal drainage. ABDOMEN: Soft. Nondistended. Epigastric tenderness with palpation. No rebound or guarding noted. NEUROLOGIC: Alert and oriented. Cranial nerves II through XII grossly intact. LABORATORY DATA: WBC 7.9 Hgb 13.7 platelets 283 Sodium 136 potassium is 3.8 creatinine 0.63 Lactic acid 1.7 LFTs normal lipase 87 IMAGING: CT scan abdomen pelvis as stated above. ASSESSMENT: 1. Epigastric abdominal pain with nausea and vomiting 2. Mild to moderate free fluid throughout the abdomen and pelvis. Moderate mesenteric edema. Slight nodularity, peritoneal neoplasm not excluded. 3. History of cholecystectomy PLAN: -Abdominal ultrasound for possible paracentesis ordered for evaluation of abdominal ascites. Consult placed for IR service for possible paracentesis. Fluid to be sent for cytology. Case also discussed with GI service. -Further recommendations forthcoming per surgeon Physician Sample Washer note has been reviewed by physician. Signing provider agrees with the documented findings, assessment, and plan of care. Attestation During rounds, unable to evaluate patient as she is with interventional radiolo gy for procedure. Will evaluate the patient in AM. Manas Haro DO Past Medical History Past Medical History: Hypertension Additional Past Medical History / Comment(s): Osteoporosis, hx. colon polyps, chronic diarrhea recently but has lessened recently History of Any Multi-Drug Resistant Organisms: None Reported Past Surgical History: Cholecystectomy, Joint Replacement, Orthopedic Surgery, Tubal Ligation Additional Past Surgical History / Comment(s): left knee replaced, ORIF right wrist, colonoscopy Past Anesthesia/Blood Transfusion Reactions: No Reported Reaction Smoking Status: Never smoker Medications and Allergies Home Medications Medication Instructions Recorded Confirmed Type Cholecalciferol [Vitamin D3 (25 25 mcg PO DAILY 11/05/22 11/26/24 History Mcg = 1000 Iu)] Irbesartan/Hydrochlorothiazide 1 tab PO HS 11/05/22 11/26/24 History [Irbesartan-Hctz 300-12.5 mg Tb] Calcium Carbonate [Calcium] 1,200 mg PO DAILY 11/26/24 11/26/24 History Multivitamins, Thera [Multivitamin 1 tab PO DAILY 11/26/24 11/26/24 History (formulary)] Allergies Allergy/AdvReac Type Severity Reaction Status Date / Time No Known Allergies Allergy Verified 11/26/24 10:28 Surgical - Exam Osteopathic Statement: *. No significant issues noted on an osteopathic stru ctural exam other than those noted in the History and Physical/Consult. Vital Signs Temp Pulse Resp BP Pulse Ox 97.4 F L 93 20 133/90 96 11/25/24 22:37 11/25/24 22:37 11/25/24 22:37 11/25/24 22:37 11/25/24 22:37 Results - Labs 11/25/24 22:50 11/25/24 22:50 Abnormal Lab Results - Last 24 Hours (Table) 11/25/24 11/25/24 11/26/24 Range/Units 22:50 22:50 10:44 APTT 21.8 L (22.0-30.0) sec Sodium 136 L (137-145) mmol/L BUN 30 H (7-17) mg/dL Glucose 159 H (74-99) mg/dL Amylase 124 H (30-110) U/L Urine Appearance Cloudy H (Clear) Ur Leukocyte Esterase Small H (Negative) Urine WBC 6 H (0-5) /hpf Urine Bacteria Many H (None) /hpf Urine Mucus Rare H (None) /hpf Diabetes panel 11/25/24 Range/Units 22:50 Sodium 136 L (137-145) mmol/L Potassium 3.8 (3.5-5.1) mmol/L Chloride 105 (98-107) mmol/L Carbon Dioxide 22 (22-30) mmol/L BUN 30 H (7-17) mg/dL Creatinine 0.63 (0.52-1.04) mg/dL Glucose 159 H (74-99) mg/dL Calcium 9.4 (8.4-10.2) mg/dL AST 25 (14-36) U/L ALT 20 (4-34) U/L Alkaline Phosphatase 90 (38-126) U/L Total Protein 6.5 (6.3-8.2) g/dL Albumin 3.9 (3.5-5.0) g/dL Calcium panel 11/25/24 Range/Units 22:50 Calcium 9.4 (8.4-10.2) mg/dL Albumin 3.9 (3.5-5.0) g/dL Pituitary panel 11/25/24 Range/Units 22:50 Sodium 136 L (137-145) mmol/L Potassium 3.8 (3.5-5.1) mmol/L Chloride 105 (98-107) mmol/L Carbon Dioxide 22 (22-30) mmol/L BUN 30 H (7-17) mg/dL Creatinine 0.63 (0.52-1.04) mg/dL Glucose 159 H (74-99) mg/dL Calcium 9.4 (8.4-10.2) mg/dL Adrenal panel 11/25/24 Range/Units 22:50 Sodium 136 L (137-145) mmol/L Potassium 3.8 (3.5-5.1) mmol/L Chloride 105 (98-107) mmol/L Carbon Dioxide 22 (22-30) mmol/L BUN 30 H (7-17) mg/dL Creatinine 0.63 (0.52-1.04) mg/dL Glucose 159 H (74-99) mg/dL Calcium 9.4 (8.4-10.2) mg/dL Total Bilirubin 0.7 (0.2-1.3) mg/dL AST 25 (14-36) U/L ALT 20 (4-34) U/L Alkaline Phosphatase 90 (38-126) U/L Total Protein 6.5 (6.3-8.2) g/dL Albumin 3.9 (3.5-5.0) g/dL
[2024-11-26 15:07] LABS: C Reactive Protein 0.8 mg/dL (<1.0)
--- NOTE | 2024-11-26 15:07 | P.CONS ---
History of Present Illness - Reason for Consult Consult date: 11/26/24 Dilation, questionable ERCP Requesting physician: Nida Myers - Chief Complaint Abdominal pain - History of Present Illness This a pleasant 74-year-old female who came into the emergency department last night for abdominal pain. She states most of the pain is in the epigastric region. Associated with vomiting x 2. She was recently having some increased diarrhea however have been normal lately. Past medical history includes hypertension, and patient also has had a previous cholecystectomy many years ago. She had a CT of the abdomen pelvis as part of her evaluation that reported moderate extrahepatic biliary dilation consider further workup with the ERCP/MRC P. She states abdominal pain has improved. No further nausea and vomiting. Labs are unremarkable. LFTs are all normal including bilirubin. Review of Systems REVIEW OF SYSTEMS: CARDIOPULMONARY: No chest pain or shortness of breath. Gastrointestinal: Abdominal pain, epigastric. Nausea and vomiting. No hematemesis, coffee-ground emesis. No rectal bleeding, or melena. GENITOURINARY: No dysuria or hematuria. MUSCULOSKELETAL: Reports normal range of motion. SKIN: No rashes. No jaundice. ENDOCRINE: No chills, fevers. No excessive weight gain or loss. No polydipsia or polyuria. PSYCHIATRIC: Unremarkable. NEUROLOGY: No change in mental status. Denies dizziness, headache. ENT: Vision unremarkable. CONSTITUTIONAL: No recent weight loss. No fever, chills, night sweats. Past Medical History Past Medical History: Hypertension Additional Past Medical History / Comment(s): Osteoporosis, hx. colon polyps, chronic diarrhea recently but has lessened recently History of Any Multi-Drug Resistant Organisms: None Reported Past Surgical History: Cholecystectomy, Joint Replacement, Orthopedic Surgery, Tubal Ligation Additional Past Surgical History / Comment(s): left knee replaced, ORIF right wrist, colonoscopy Past Anesthesia/Blood Transfusion Reactions: No Reported Reaction Smoking Status: Never smoker Medications and Allergies Home Medications Medication Instructions Recorded Confirmed Type Cholecalciferol [Vitamin D3 (25 25 mcg PO DAILY 11/05/22 11/26/24 History Mcg = 1000 Iu)] Irbesartan/Hydrochlorothiazide 1 tab PO HS 11/05/22 11/26/24 History [Irbesartan-Hctz 300-12.5 mg Tb] Calcium Carbonate [Calcium] 1,200 mg PO DAILY 11/26/24 11/26/24 History Multivitamins, Thera [Multivitamin 1 tab PO DAILY 11/26/24 11/26/24 History (formulary)] Allergies Allergy/AdvReac Type Severity Reaction Status Date / Time No Known Allergies Allergy Verified 11/26/24 10:28 Physical Exam Vitals: Vital Signs Temp Pulse Resp BP Pulse Ox 11/26/24 10:00 98.1 F 92 18 140/72 96 11/26/24 09:00 98 F 11/26/24 06:00 75 18 133/89 96 11/26/24 02:40 84 18 128/80 95 11/25/24 22:37 97.4 F L 93 20 133/90 96 Intake and Output 11/25/24 11/26/24 11/26/24 22:59 06:59 14:59 Other: Weight 86.183 kg General appearance: The patient is alert, oriented, appears in no acute distress. HET: Head is normocephalic and atraumatic. Conjunctiva pink. Sclera anicteric. Neck: Supple without lymphadenopathy. Abdomen: Soft, epigastric tenderness, nondistended. Extremities: Normal skin color and turgor. No pedal edema Skin: No rashes, no jaundice Neurological: No focal deficits. Alert and oriented. Results CBC & Chem 7: 11/25/24 22:50 11/25/24 22:50 Labs: Abnormal Lab Results - Last 24 Hours (Table) 11/25/24 11/25/24 11/26/24 Range/Units 22:50 22:50 10:44 APTT 21.8 L (22.0-30.0) sec Sodium 136 L (137-145) mmol/L BUN 30 H (7-17) mg/dL Glucose 159 H (74-99) mg/dL Amylase 124 H (30-110) U/L Urine Appearance Cloudy H (Clear) Ur Leukocyte Esterase Small H (Negative) Urine WBC 6 H (0-5) /hpf Urine Bacteria Many H (None) /hpf Urine Mucus Rare H (None) /hpf Comments: CT abdomen pelvis without contrast reports no bowel obstruction. No CT evidence for acute appendicitis. Mild to moderate free fluid throughout the abdomen and pelvis. Moderate mesenteric edema. Slight nodularity, peritoneal neoplasm not entirely excluded. Moderate extrahepatic biliary dilation. Consider further workup with the ERCP/MRCP. Several compression type fractures favored chronic most prominent involving the T8 vertebra, correlate clinically. Abdominal ultrasound reports gallbladder surgically absent which likely accounts for mild intra and extrahepatic biliary ductal dilation. Small amount of ascites. Lesion involving the left kidney reported by previous CT scan not seen on today's ultrasound. Which likely secondary to overlying bowel gas. Assessment and Plan (1) Dilation of biliary tract Narrative/Plan: 74-year-old female with a history of remote cholecystectomy presents with abdominal pain. Labs are unremarkable, no elevation of bilirubin or LFTs. Unclear etiology of abdominal pain which is mostly located in the upper abdomen epigastric region. Patient states cholecystectomy was secondary to choleli thiasis, need to consider possible choledochal lithiasis. However there is no CBD dilation noted on abdominal ultrasound, and intrahepatic extrahepatic biliary dilation can be secondary to cholecystectomy. Will order MRCP for further evaluation. Current Visit: Yes Status: Acute Code(s): K83.8 - OTHER SPECIFIED DISEASES OF BILIARY TRACT SNOMED Code(s): 295430231 (2) Abdominal pain Narrative/Plan: Recommend diagnostic paracentesis for new onset ascites Current Visit: Yes Status: Acute Code(s): R10.9 - UNSPECIFIED ABDOMINAL PAIN SNOMED Code(s): 79884799 (3) History of cholecystectomy Current Visit: Yes Status: Acute Code(s): Z90.49 - ACQUIRED ABSENCE OF OTHER SPECIFIED PARTS OF DIGESTIVE TRACT SNOMED Code(s): 849758371 Plan: 1. Continue symptomatic and supportive care 2. Clear liquid diet, 3. Repeat CMP tomorrow amylase and lipase 4. MRCP ordered 5. I agree with diagnostic paracentesis 6. Antiemetics as needed 7. Protonix 40 mg daily for GI prophylaxis 8. Further recommendations forthcoming based on clinical course Thank you for this consultation, we will continue to follow. Dr. Peterson Maradiaga I agree with the dictator's note, documented as a scribe by Nieves Varghese.
--- NOTE | 2024-11-26 15:19 | CT ---
EXAMINATION TYPE: CT chest wo con CT DLP: 367.3 mGycm, Automated exposure control for dose reduction was used. DATE OF EXAM: 11/26/2024 3:07 PM COMPARISON: CT chest 02/14/2022, CT abdomen and pelvis 11/25/2024 CLINICAL INDICATION:Female, 74 years old with history of malignancy?; [facility], r/o malignancy TECHNIQUE: Multiple axial images were obtained through the chest without IV contrast. Lack of IV or o ral contrast limits evaluation of solid and hollow organ viscera. . Coronal and sagittal reformats re viewed. FINDINGS: LUNGS/ PLEURA: No pleural effusion, pneumothorax, focal consolidation. Bilateral lower lobe linear at electasis. No suspicious pulmonary nodule or mass. AIRWAY: Patent and unremarkable.. HEART: Size within normal limits.No pericardial effusion. Coronary artery calcifications. MEDIASTINUM: Stable prevascular space 1.3 cm enlarged lymph node dating back to and considered zuleyka ign. VASCULATURE: No aortic aneurysm. MUSCULOSKELETAL: No acute osseous abnormalities. Stable sclerotic 1 cm lesion within the T12 vertebra l body dating back to 2021 and considered benign. Most consistent with benign bone island. Stable com pression deformity involving the T8 vertebral body. Redemonstration of superior endplate compression deformity of the L2 vertebral body from recent CT abdomen pelvis. No new aggressive osseous lesion. SOFT TISSUES/LYMPH NODES: Unremarkable. LOWER NECK: No significant findings. UPPER ABDOMEN: Small amount ascites within the abdomen. Gallbladder surgically absent. Redemonstratio n of extra hepatic biliary ductal dilatation from recent CT. Redemonstration of a 2.1 cm left renal c yst. Mesenteric edema are redemonstrated with some slight nodularity. Small hiatal hernia. IMPRESSION: 1. No acute thoracic process. 2. Stable prevascular space mildly enlarged lymph node dating back to 2021 and considered benign. No new adenopathy or pulmonary nodules. 3. Redemonstration of recent CT abdomen and pelvis findings with small volume of ascites, extra hepat ic biliary duct dilatation, and mesenteric edema with some slight nodularity. [facility], , 11/26/2024 3:17 PM
--- NOTE | 2024-11-26 16:47 | US ---
EXAMINATION TYPE: US paracentesis abd w/image, diagnostic and therapeutic DATE OF EXAM: 11/26/2024 CLINICAL HISTORY: 74-year-old female with severe abdominal pain and ascites The procedure was discussed with the patient. The risks, complications, benefits, and alternatives we re discussed and any questions were answered. Informed consent was obtained. The patient was placed s upine on the ultrasound table and prepped and draped in the usual sterile fashion. All elements of maximal barrier technique were utilized. Small ascites was identified, largest pocket right upper quadrant. Ultrasound was utilized to determine the precise skin entry site along the right upper quadrant. A 5 Wolof One-Step catheter and trocar technique was utilized to access the ascites collection under direct ultrasound guidance. Approximately 500 mL of red-colored fluid was removed. 150 mL of which (in 3 syringes) was labeled an d sent for laboratory analysis. Catheter was removed, hemostasis obtained, and a dressing placed. The patient was stable throughout the procedure and remained stable upon discharge from Department of Radiology. IMPRESSION: Successful diagnostic and therapeutic paracentesis under ultrasound guidance. 500 mL of red fluid was removed. Laboratory analysis pending. [facility], , 11/26/2024 4:44 PM
[2024-11-26] MEDS: hydroCHLOROthiazide 12.5 MG CAP PO SCH (20:43)
[2024-11-26] MEDS: LOSARTAN 50 MG TAB PO SCH (20:43)
--- NOTE | 2024-11-27 01:35 | HP ---
HISTORY AND PHYSICAL CHIEF COMPLAINT: Abdominal pain. HISTORY OF PRESENT ILLNESS: This 74-year-old woman with a past medical history multiple medical problems including hypertension, was complaining of abdominal pain. Pain is mostly situated in the epigastrium and the patient did have some right lower quadrant abdominal pain. Evaluation in the ER showed normal laboratory parameters and the CAT scan of the abdomen and pelvis showed mild to moderate free fluid throughout the abdomen and pelvis with moderate mesenteric edema. Peritoneal neoplasm not entirely excluded and moderate extrahepatic biliary dilatation and severe compression type fractures involving the chronic most prominent involving T8 vertebra. Abdominal ultrasound showed small amount of ascites. There is no history of fever, rigors, or chills at this time. PAST MEDICAL HISTORY: History of hypertension, osteoporosis, colonic polyps, and chronic diarrhea. Rest of the history and rest of the chart is also reviewed. HOME MEDICATIONS: Reviewed include multivitamins. Rest of the medications and rest of the doses are noted. ALLERGIES: Unknown. FAMILY HISTORY: No history of heart disease or strokes in the family. SOCIAL HISTORY: No history of smoking or alcohol intake. REVIEW OF SYSTEMS: Fourteen-point review of systems is negative except as mentioned earlier. PHYSICAL EXAMINATION: VITAL SIGNS: Pulse 92, blood pressure ntd, and respirations 18. HEENT: Conjunctivae normal. NECK: No JVD. CARDIOVASCULAR: S1, S2. RESPIRATIONS: Diminished at the bases. A few scattered rhonchi. ABDOMEN: Soft. Mild diffuse distention. Mild diffuse discomfort. No guarding. No rigidity. No mass palpable. No ascites clinically. LEGS: No edema. NERVOUS SYSTEM: Nonfocal. LABORATORY DATA: Reviewed. ASSESSMENT: 1. Diffuse abdominal pain, rule out moderate ascites and mesenteric edema and peritoneal neoplasm. 2. Moderate extrahepatic biliary dilatation, status post cholecystectomy. 3. Compression fractures of the T10 vertebra. 4. Hypertension. 5. Osteoporosis. 6. History of colon polyps. 7. Multiple complex medical issues. 8. History of chronic diarrhea. RECOMMENDATIONS: This 74-year-old woman presented with multiple complex medical issues. We will monitor the patient closely. Continue the current medications, and continue symptomatic treatment management. Recommend Gastroenterology consultations and also recommend surgical evaluation also. Hematology/Oncology also will be consulted and guarded prognosis because of multiple complex medical issues. Further recommendations, see orders for details. Possibility of distal malignancy also will be considered. I would also recommend CT of the chest also to complete the workup. MMODL / IJN: [id number] / MTDD
[2024-11-27 08:45] LABS: Blood Urea Nitrogen 13.2 mg/dL (9.0-27.0); Carbon Dioxide 25.5 mmol/L (21.6-31.8); Chloride 104 mmol/L (96-109); Glucose 102 mg/dL (70-110); Magnesium 1.7 mg/dL (1.5-2.4); Sodium 140 mmol/L (135-145)
[2024-11-27 08:46] LABS: ALT 18 U/L (8-44); AST 21 U/L (13-35); Albumin 3.6 g/dL (3.8-4.9); Albumin/Globulin Ratio 1.64 Ratio (1.60-3.17); Alkaline Phosphatase 79 U/L (41-126); Calcium 9.1 mg/dL (8.7-10.3); Globulin 2.2 g/dL (1.6-3.3); Total Bilirubin 1.2 mg/dL (0.3-1.2); Total Protein 5.8 g/dL (6.2-8.2)
[2024-11-27 08:59] LABS: Basophils # (A) 0.05 X 10*3/uL (0.00-0.10); Basophils % (A) 0.7 %; Eosinophils # (A) 0.28 X 10*3/uL (0.04-0.35); Eosinophils % (A) 3.9 %; HGB 12.5 g/dL (12.0-15.0); Lymphocytes # (A) 2.59 X 10*3/uL (0.90-5.00); Lymphocytes % (A) 36.4 %; MCH 29.6 pg (27.0-32.0); MCHC 32.1 g/dL (32.0-37.0); MCV 92.4 FL (80.0-97.0); Mean Platelet Volume 10.7 FL (9.5-12.2); Monocytes # (A) 0.85 X 10*3/uL (0.20-1.00); NRBC Per 100 WBC 0 X 10*3/uL (0.00-0.01); Neutrophils # (A) 3.32 X 10*3/uL (1.80-7.70); Neutrophils % (A) 46.7 %; Platelet Count 283 X 10*3/uL (140-440); RBC 4.22 X 10*6/uL (4.10-5.20); WBC 7.11 X 10*3/uL (4.50-10.00)
[2024-11-27] MEDS: CALCIUM CARBONATE 500 MG CHEWABLE PO SCH (09:30)
[2024-11-27] MEDS: CHOLECALCIFEROL 25 MCG (1000 IU) TABLET PO SCH (09:38)
[2024-11-27] MEDS: MULTIVITAMINS, THERA 1 EACH TAB PO SCH (09:38)
[2024-11-27 11:18] LABS: T. Protein, Body Fluid Source Paracentesis Fluid; Total Protein, Body Fluid >3600 mg/dL
[2024-11-27 11:49] LABS: Albumin, Fluid Source Other
--- NOTE | 2024-11-27 12:24 | P.PN ---
Subjective Progress Note Date: 11/27/24 Principal diagnosis: Abdominal pain This a pleasant 74-year-old female who came into the emergency department last night for abdominal pain. She states most of the pain is in the epigastric region. Associated with vomiting x 2. She was recently having some increased diarrhea however have been normal lately. Past medical history includes hypertension, and patient also has had a previous cholecystectomy many years ago. She had a CT of the abdomen pelvis as part of her evaluation that reported moderate extrahepatic biliary dilation consider further workup with the ERCP/ MRCP. She states abdominal pain has improved. No further nausea and vomiting. Labs are unremarkable. LFTs are all normal including bilirubin. 11/27/2024 Patient is seen and examined today as a follow-up. States abdominal pain is improved. She is scheduled for MRCP this afternoon. No nausea or vomiting. Repeat liver enzymes are normal. CA 125 is elevated at 529 Objective - Vital Signs Vital signs: Vital Signs Temp 98.3 F 11/27/24 07:00 Pulse 87 11/27/24 07:00 Resp 18 11/27/24 07:00 BP 149/73 11/27/24 07:00 Pulse Ox 95 11/27/24 07:00 FiO2 Intake & Output 11/26/24 11/27/24 11/27/24 18:59 06:59 18:59 Weight 86.183 kg Other: # Voids 1 - Exam General appearance: The patient is alert, oriented, appears in no acute distress. HET: Head is normocephalic and atraumatic. Conjunctiva pink. Sclera anicteric. Neck: Supple without lymphadenopathy. Abdomen: Soft, mild upper abdominal tenderness, nondistended. Extremities: Normal skin color and turgor. No pedal edema Skin: No rashes, no jaundice Neurological: No focal deficits. Alert and oriented. - Labs CBC & Chem 7: 11/27/24 05:40 11/27/24 05:40 Labs: Abnormal Lab Results - Last 24 Hours (Table) 11/26/24 11/26/24 11/27/24 Range/Units 10:44 14:26 05:40 RDW 15.0 H (11.5-14.5) % BUN/Creatinine Ratio (12.00-20.00) Ratio Total Protein (6.2-8.2) g/dL Albumin (3.8-4.9) g/dL CA 125 Antigen 529.0 H (0.0-30.1) U/mL Urine Appearance Cloudy H (Clear) Ur Leukocyte Esterase Small H (Negative) Urine WBC 6 H (0-5) /hpf Urine Bacteria Many H (None) /hpf Urine Mucus Rare H (None) /hpf 11/27/24 Range/Units 05:40 RDW (11.5-14.5) % BUN/Creatinine Ratio 22.00 H (12.00-20.00) Ratio Total Protein 5.8 L (6.2-8.2) g/dL Albumin 3.6 L (3.8-4.9) g/dL CA 125 Antigen (0.0-30.1) U/mL Urine Appearance (Clear) Ur Leukocyte Esterase (Negative) Urine WBC (0-5) /hpf Urine Bacteria (None) /hpf Urine Mucus (None) /hpf Assessment and Plan (1) Dilation of biliary tract Narrative/Plan: 74-year-old female with a history of remote cholecystectomy presents with abdominal pain. Labs are unremarkable, no elevation of bilirubin or LFTs. Unclear etiology of abdominal pain which is mostly located in the upper abdomen epigastric region. Patient states cholecystectomy was secondary to cholelithiasis, need to consider possible choledochal lithiasis. However there is no CBD dilation noted on abdominal ultrasound, and intrahepatic extrahepatic biliary dilation can be secondary to cholecystectomy. Will order MRCP for further evaluation. MRCP completed without any findings of biliary ductal structure or evidence of choledocholithiasis. Surgically absent gallbladder with dilation of extrahepatic and central intrahepatic biliary ducts which can be seen in normal postcholecystectomy physiology. Hepatic steatosis. Small ascites. Bilateral enlarged ovaries with multiple cyst versus hydrosalpinx. Further evaluation with pelvic ultrasound should be considered. Bilateral simple appearing renal cyst. Current Visit: Yes Status: Acute Code(s): K83.8 - OTHER SPECIFIED DISEASES OF BILIARY TRACT SNOMED Code(s): 316488827 (2) Abdominal pain Narrative/Plan: Recommend diagnostic paracentesis for new onset ascites Current Visit: Yes Status: Acute Code(s): R10.9 - UNSPECIFIED ABDOMINAL PAIN SNOMED Code(s): 75717785 (3) History of cholecystectomy Current Visit: Yes Status: Acute Code(s): Z90.49 - ACQUIRED ABSENCE OF OTHER SPECIFIED PARTS OF DIGESTIVE TRACT SNOMED Code(s): 999826577 (4) Ascites Narrative/Plan: Fluid studies reviewed fluid protein and albumin not consistent with portal hypertension. Ascites likely from secondary source consider oncology consultation. Current Visit: Yes Status: Acute Code(s): R18.8 - OTHER ASCITES SNOMED Code(s): 761297828 Plan: 1. Continue symptomatic and supportive care 2. May advance to low-fat/low fiber diet following MRCP 3. MRCP ordered and reviewed 4. Patient is status post paracentesis, fluid studies not consistent with portal hypertension 5. Antiemetics as needed 6. Protonix 40 mg daily for GI prophylaxis 7. Agree with oncology consultation 8. No further workup from gastroenterology. We can sign off at this time. Thank you for this consultation, we we will sign off at this time. Dr. Peterson Maradiaga I agree with the dictator's note, documented as a scribe by Nieves Varghese.
[2024-11-27 13:00] LABS: Appearance,BF Bloody (Clear)
--- NOTE | 2024-11-27 13:20 | MR ---
EXAMINATION TYPE: MR MRCP DATE OF EXAM: 11/27/2024 12:41 PM COMPARISON: CT 11/26/2024. CLINICAL INDICATION: Female, 74 years old with history of Biliary dilation, abdominal pain; PHH, Abdo diego pain, biliary dilation. TECHNIQUE: Multi planar, T2-weighted imaging with and without fat saturation and chemical shift imag ing was performed of the abdomen. Then, heavily T2 weighted imaging (half-Fourier acquisition single- shot turbo spin-echo) was utilized in order to study the biliary system. Maximum intensity projectio n images were reconstructed from the original data of the biliary tree. 3D images were created on [employer] work station. No Gadolinium given. FINDINGS: Lower Thorax: No evidence for acute process. MRCP: * The intrahepatic ducts mildly dilated centrally. * The extrahepatic ducts mild dilated appearance. * The common hepatic duct measures 13 mm in size. * The common bile duct at the level of the pancreatic head measures 6 mm in size. * The pancreatic duct is normal. * The gallbladder is surgically absent. Abdomen: Liver: No evidence for cirrhosis. Signal dropout on chemical shift out of phase imaging. Few scattere d subcentimeter high T2 foci likely representing cysts. Pancreas: No ductal dilation. No evidence for solid mass. Spleen: Normal for size. Adrenal glands: Unremarkable. Kidneys: No evidence for obstructive uropathy. No suspicious renal masses. High T2 signal cyst in the left kidney measuring 20 mm in the right measuring 8 mm. Stomach and Bowel: No evidence for bowel wall thickening or evidence for obstruction. Retroperitoneum/Peritoneum: No evidence of pneumoperitoneum small free fluid throughout the abdomen. Vasculature: No aortic aneurysm. Musculoskeletal: The osseous structures appear intact. Lymph Nodes: No gross evidence for lymphadenopathy. Abdominal wall: Partially visualized ovaries demonstrate multiple cysts bilaterally r measuring up to 5 0 x 4.0 cm in the right and 4.7 x 3.2 cm on the left. Unremarkable. IMPRESSION: 1. No evidence to suggest ductal stricture or choledocholithiasis. 2. Surgically absent gallbladder with dilation of extra hepatic and central intrahepatic biliary moises ts which can be seen in normal post cholecystectomy physiology. 3. Hepatic steatosis. 4. Small ascites. 5. Bilateral enlarged ovaries with multiple cysts versus hydrosalpinx. Further evaluation with pelvic ultrasound should be considered. 6. Bilateral Simple appearing renal cysts. [facility], , 11/27/2024 1:17 PM
--- NOTE | 2024-11-27 14:29 | P.PN ---
Subjective Progress Note Date: 11/27/24 SURGICAL PROGRESS NOTE CHIEF COMPLAINT: Abdominal pain HISTORY OF PRESENT ILLNESS: Patient sitting at bedside chair. She reports that her pain is a little less today. Patient reports when she has had pain it is epigastric and right lower quadrant. She denies any nausea or vomiting. She did have paracentesis yesterday with 500 mL reddish liquid removed by IR service. Cultures and cytology were obtained. Patient had MRCP today. Results reported no ductal stricture or choledocholithiasis. Surgical absent gallbladder with dilation of extrahepatic and central intrahepatic biliary ducts which is normal post Florencia physiology. Hepatic steatosis. Small ascites. Bilateral enlarged ovaries with multiple cysts. Bilateral simple appearing renal cysts. Afebrile. WBC 7.11 Hgb 12.5 CA125 elevated at 529 PHYSICAL EXAM: VITAL SIGNS: Reviewed. GENERAL: Well-developed in no acute distress. ABDOMEN: Soft. Nondistended. Tenderness with palpation to epigastric area. NEUROLOGIC: Alert and oriented. Cranial nerves II through XII grossly intact. ASSESSMENT: 1. Epigastric abdominal pain 2. Mild to moderate free fluid throughout the abdomen and pelvis. Moderate mesenteric edema. Slight nodularity, peritoneal neoplasm not excluded. 3. History of cholecystectomy 4. Elevated CA125 level PLAN: -Agree with oncology evaluation -Follow-up on cytology results -Continue supportive care -Okay for low-fat diet -Further recommendations forthcoming per surgeon Physician Photo Checker And Assembler note has been reviewed by physician. Signing provider agrees with the documented findings, assessment, and plan of care. Objective - Vital Signs Vital signs: Vital Signs Temp 98.3 F 11/27/24 07:00 Pulse 87 11/27/24 07:00 Resp 18 11/27/24 07:00 BP 149/73 11/27/24 07:00 Pulse Ox 95 11/27/24 07:00 FiO2 Intake & Output 11/26/24 11/27/24 11/27/24 18:59 06:59 18:59 Weight 86.183 kg Other: # Voids 1 - Labs CBC & Chem 7: 11/27/24 05:40 11/27/24 05:40 Labs: Abnormal Lab Results - Last 24 Hours (Table) 11/26/24 11/26/24 11/27/24 Range/Units 14:26 16:20 05:40 RDW 15.0 H (11.5-14.5) % BUN/Creatinine Ratio (12.00-20.00) Ratio Total Protein (6.2-8.2) g/dL Albumin (3.8-4.9) g/dL CA 125 Antigen 529.0 H (0.0-30.1) U/mL Fluid Appearance Bloody A (Clear) 11/27/24 Range/Units 05:40 RDW (11.5-14.5) % BUN/Creatinine Ratio 22.00 H (12.00-20.00) Ratio Total Protein 5.8 L (6.2-8.2) g/dL Albumin 3.6 L (3.8-4.9) g/dL CA 125 Antigen (0.0-30.1) U/mL Fluid Appearance (Clear) Assessment and Plan Assessment: 74 yo female w/ improving abdominal pain ctap reveals free fluid in the abdomen w/ possible studding of the peritoneum paracentesis performed, await for cytology pain control Time with Patient: Less than 30
--- NOTE | 2024-11-27 17:00 | US ---
EXAMINATION TYPE: US pelvis complete transvag DATE OF EXAM: 11/27/2024 COMPARISON: MRI and CT. CLINICAL INDICATION: Female, 74 years old with history of ovarian swelling; Abnormal tests. Free flu id. Patient states having history of cysts with removal. No personal hx of CA. Portable inpatient exam, limited TECHNIQUE: Transvaginal (TV) and Transabdominal (TA) . Transabdominal grayscale sonographic images of the pelvis were acquired. Transvaginal sonographic im ages were medically necessary to better assess the following anatomy: Uterus, Endometrium Doppler imaging: Not performed. FINDINGS: Date of LMP: Unknown, EXAM MEASUREMENTS: Uterus: 7.2 x 4.1 x 4.0 cm Endometrial Stripe: 0.3 cm Right Ovary: 6.1 x 3.7 x 4.9 cm Left Ovary: 8.4 x 4.4 x 5.3 cm 1. Uterus: Anteverted Heterogenous. Unable to identify any discrete lesions. 2. Endometrium: Limited visualization. Trace fluid seen within endometrial canal. 3. Right Ovary: Enlarged. Multiple anechoic lesions seen, largest= 4.6 x 3.9 x 3.2 cm. Echogenic a nargis seen = 1.1 x 0.9 cm 4. Left Ovary: Enlarged. Multiple anechoic lesions seen, largest possible pedunculated = 3.9 x 4.2 x 3.2 cm. Hypoechoic lesion vs other etiology = 3.2 x 2.2 x 2.3 cm 5. Bilateral Adnexa: possible free fluid in adnexa. 6. Posterior cul-de-sac: No free fluid. Nonperistalsing hypoechoic heterogenous area seen, bowel vs other Cervix- Fluid seen in cervical canal. Nabothian cysts seen. Hypoechoic lesions identified with large st - 1.5 x 1.8 x 1.2 cm. IMPRESSION: 1. Bilateral complex ovarian cysts as seen on MRCP same day. Yearly ultrasound surveillance recommen ded. 2. Indeterminate hypoechoic in the pelvis not clearly seen on CT. Attention on short-term follow-up imaging possibly related to free fluid in the pelvis. [facility], , 11/27/2024 4:57 PM
[2024-11-27] MEDS: HYDROcodone/APAP 5-325MG 1 EACH TAB PO PRN (17:15)
--- NOTE | 2024-11-27 18:50 | P.CONS ---
History of Present Illness - Reason for Consult Consult date: 11/27/24 malignancy?? Requesting physician: Marcelo Bunch - Chief Complaint abd pain - History of Present Illness Mrs. Fernandez is a pleasant 74-year-old female that presented to the emergency department with complaints of abdominal pain, more recently vomiting. She states that the diarrhea was the first notable change, few months back, she noticed the stools were frequent, up to 4 a day associated with cramping, she denied any pain with bowel movements. She had some vomiting this weekend, appetite has been down, she is now reporting some pretty significant epigastric pain. This is what progressed to the point where she could not move or walk so she was brought to the hospital for further evaluation. CT AP showing moderate extrahepatic biliary dilation-MRCP is ordered. Mostly unremarkable labs, LFTs normal. She has had diagnostic paracentesis. She has had the MRCP done, pending results. She is currently in process of having a pelvic ultrasound. Patient denies any personal history of malignancy she did have a father with biliary duct carcinoma. Patient denies unintentional weight loss, she states that she has been trying, patient did not admit to me to having chills or sweats but, there is documentation in reports of the same, no chest pain, palpitations, dysuria or hematuria, hematochezia or melena. Review of Systems 14 point review of systems is negative except as stated in HPI Past Medical History Past Medical History: Hypertension Additional Past Medical History / Comment(s): Osteoporosis, hx. colon polyps, chronic diarrhea History of Any Multi-Drug Resistant Organisms: None Reported Past Surgical History: Cholecystectomy, Joint Replacement, Orthopedic Surgery, Tubal Ligation Additional Past Surgical History / Comment(s): left knee replaced, ORIF right wrist, colonoscopy Past Anesthesia/Blood Transfusion Reactions: No Reported Reaction Past Psychological History: No Psychological Hx Reported Smoking Status: Never smoker Past Alcohol Use History: None Reported Past Drug Use History: None Reported - Past Family History Father Family Medical History: Cancer (Biliary duct carcinoma) Medications and Allergies Home Medications Medication Instructions Recorded Confirmed Type Cholecalciferol [Vitamin D3 (25 25 mcg PO DAILY 11/05/22 11/26/24 History Mcg = 1000 Iu)] Irbesartan/Hydrochlorothiazide 1 tab PO HS 11/05/22 11/26/24 History [Irbesartan-Hctz 300-12.5 mg Tb] Calcium Carbonate [Calcium] 1,200 mg PO DAILY 11/26/24 11/26/24 History Multivitamins, Thera [Multivitamin 1 tab PO DAILY 11/26/24 11/26/24 History (formulary)] Allergies Allergy/AdvReac Type Severity Reaction Status Date / Time No Known Allergies Allergy Verified 11/26/24 10:28 Physical Exam Vitals: Vital Signs Temp Pulse Pulse Pulse Resp BP BP 11/27/24 07:00 98.3 F 87 18 11/27/24 03:22 97.7 F 84 18 11/26/24 21:17 98.4 F 76 17 11/26/24 20:27 98.9 F 88 19 151/85 11/26/24 16:38 81 11/26/24 16:36 16 165/74 11/26/24 16:16 85 16 160/73 11/26/24 16:05 69 15 159/75 BP Pulse Ox 11/27/24 07:00 149/73 95 11/27/24 03:22 150/72 93 L 11/26/24 21:17 148/68 94 L 11/26/24 20:27 95 11/26/24 16:38 11/26/24 16:36 97 11/26/24 16:16 97 11/26/24 16:05 96 Intake and Output 11/26/24 11/27/24 11/27/24 22:59 06:59 14:59 Other: # Voids 1 Weight 86.183 kg - Constitutional General appearance: cooperative, no acute distress, obese - EENT Eyes: anicteric sclerae, EOMI ENT: hearing grossly normal, normal oropharynx - Neck Neck: no lymphadenopathy - Respiratory Respiratory: bilateral: CTA - Cardiovascular Rhythm: regular Heart sounds: normal: S1, S2 Abnormal Heart Sounds: no systolic murmur, no diastolic murmur, no rub, no S3 G allop, no S4 Gallop, no click, no other leg Peripheral Edema: bilateral: None - Gastrointestinal General gastrointestinal: no absent bowel sounds, decreased bowel sounds, no distended, no hepatomegaly, no hyperactive bowel sounds, no normal bowel sounds, no organomegaly, no rigid, no scaphoid, soft, no splenomegaly, tenderness (E pigastric area, towards the left upper quadrant patient reported significant pain with palpation, underlying mass could not be excluded), no umbilical hernia, no ventral hernia - Integumentary Integumentary: normal - Neurologic Neurologic: CNII-XII intact - Musculoskeletal Musculoskeletal: strength equal bilaterally - Psychiatric Psychiatric: A&O x's 3, appropriate affect, intact judgment & insight Results CBC & Chem 7: 11/27/24 05:40 11/27/24 05:40 Labs: Abnormal Lab Results - Last 24 Hours (Table) 11/26/24 11/27/24 11/27/24 Range/Units 14:26 05:40 05:40 RDW 15.0 H (11.5-14.5) % BUN/Creatinine Ratio 22.00 H (12.00-20.00) Ratio Total Protein 5.8 L (6.2-8.2) g/dL Albumin 3.6 L (3.8-4.9) g/dL CA 125 Antigen 529.0 H (0.0-30.1) U/mL CT scan - abdomen: report reviewed CT scan - chest: report reviewed CT scan - pelvis: report reviewed Assessment and Plan Plan: Nodularity seen on imaging in the abdomen, ascites -We have been consulted for concerns of possible malignancy. Workup is in process. CT chest abdomen and pelvis reports reviewed. Most concerning finding is the report of nodularity in the abdomen with edema. -Patient is status post MRCP, paracentesis. She was in the process of having a pelvic ultrasound when seen. -Ca 19 9 was already ordered, normal at 6.9. CA125 elevated at 529. Pending pathology results. Further recommendations to follow.
--- NOTE | 2024-11-28 01:56 | PN ---
PROGRESS NOTE DATE OF SERVICE: 11/27/2024 SUBJECTIVE: This is a 74-year-old woman, who was admitted with diffuse abdominal pain, had abdominal paracentesis, which showed 500 mL of red fluid and sent for lab analysis including cytology and MRCP showed bilateral enlarged ovaries with multiple cysts. Pelvic ultrasound is suggested. Otherwise, CA-125 is elevated at 529. PAST MEDICAL HISTORY: Reviewed. REVIEW OF SYSTEMS: A 14-point review of systems is negative except as mentioned earlier. CURRENT MEDICATIONS: Reviewed. PHYSICAL EXAMINATION: VITAL SIGNS: Pulse is 84, blood pressure 150/70, respirations 18. HEENT: Conjunctivae normal. NECK: No JVD. CARDIOVASCULAR: S1, S2. RESPIRATIONS: Breath sounds diminished at the bases. ABDOMEN: Soft, ascites. LEGS: No edema. NERVOUS SYSTEM: Nonfocal. LABORATORY DATA: Reviewed. ASSESSMENT: 1. Diffuse abdominal pain, rule out moderate ascites and mesenteric edema and rule out peritoneal neoplasm. 2. Elevated CA-125. 3. Moderate extrahepatic biliary dilatation, status post cholecystectomy. 4. Compression fracture of T10 vertebra. 5. Hemorrhagic ascites, status post paracentesis. 6. Hypertension. 7. Osteoporosis. 8. History of colon polyps. 9. Multiple complex medical issues. 10.History of chronic diarrhea. RECOMMENDATIONS AND DISCUSSION: I recommend to continue current medications and continue symptomatic treatment. Otherwise, we will continue to monitor. Closely follow with Infectious Disease and Hematology, Oncology. Guarded prognosis. Further recommendations to follow. Pelvic ultrasound. MMODL / IJN: [id number] /
--- NOTE | 2024-11-28 17:54 | CT ---
EXAMINATION TYPE: CT brain wo con DATE OF EXAM: 11/28/2024 COMPARISON: None. CLINICAL INDICATION: Female, 74 years old with history of altered mentation; PHH, Altered mentation. TECHNIQUE: CT scan of the head is performed without contrast. CT DLP: 1059.4 mGycm Automated exposure control for dose reduction was used. FINDINGS: There is no acute intracranial hemorrhage or midline shift identified. There is mild diff use ventricular and sulcal prominence consistent with diffuse age-related cerebral atrophy. There is mild low-attenuation in the periventricular white matter consistent with chronic small vessel ischem ic change. Bilateral basal ganglia calcifications are seen. Bilateral aphakia is present. The visuali zed sinuses are clear. IMPRESSION: No acute intracranial hemorrhage or midline shift. There is mild diffuse age-related ce rebral atrophy and chronic small vessel ischemic change noted. [facility], , 11/28/2024 5:52 PM
[2024-11-28] MEDS ORDERED: MAGNESIUM HYDROXIDE 2,400 MG/30 ML CUP PO PRN (18:51)
--- NOTE | 2024-11-28 18:51 | P.PN ---
Subjective Progress Note Date: 11/28/24 Principal diagnosis: Peritoneal nodularity and ascites In follow-up today patient is reporting that she has a decent appetite, no nausea or vomiting, no diarrhea or constipation. The main problem she is having at this time is intermittent abdominal pain, stabbing in nature, radiating from the top of the abdomen down, the entire abdomen is involved. Pain medications are helping when these episodes of pain occur. No other acute complaints. Objective - Vital Signs Vital signs: Vital Signs Temp 98.2 F 11/28/24 14:00 Pulse 92 11/28/24 14:00 Resp 16 11/28/24 14:00 BP 157/83 11/28/24 14:00 Pulse Ox 94 L 11/28/24 14:00 FiO2 Intake & Output 11/27/24 11/28/24 11/28/24 18:59 06:59 18:59 Intake Total 236 Balance 236 Intake: Oral 236 Other: Voiding Method Toilet # Voids 1 1 4 - Constitutional General appearance: Present: cooperative, no acute distress, obese - EENT Eyes: Present: anicteric sclerae, EOMI ENT: Present: hearing grossly normal - Respiratory Details: Respirations even and unlabored - Cardiovascular Details: Skin warm and dry, well-perfused - Peripheral edema leg Peripheral Edema: bilateral: None - Gastrointestinal General gastrointestinal: Present: normal bowel sounds, soft, tenderness Localized gastrointestinal: tender: LUQ, epigastric periumbilical - Integumentary Integumentary: Present: normal - Neurologic Neurologic: Present: CNII-XII intact - Musculoskeletal Musculoskeletal: Present: strength equal bilaterally - Psychiatric Psychiatric: Present: A&O x's 3, appropriate affect, intact judgment & insight - Labs CBC & Chem 7: 11/27/24 05:40 11/27/24 05:40 Labs: Microbiology - Last 24 Hours (Table) 11/26/24 16:20 Gram Stain - Preliminary Paracentesis Fluid Body Fluid Culture - Preliminary Assessment and Plan Plan: Nodularity seen on imaging in the abdomen, ascites -We have been consulted for concerns of possible malignancy. Workup is in process. -CT CAP concerning finding is the report of nodularity in the abdomen with edema. Transvaginal ultrasound reporting no discrete lesions of the uterus, limited visualization of the endometrium, enlarged right and left ovary with multiple and echoic lesions -Patient is status post MRCP reports bilateral enlarged ovaries with cysts no ot her significant findings, small amount of ascites -paracentesis, cytology pending -Ca 19 9 was already ordered, normal at 6.9. CA125 elevated at 529. This was reviewed with pt, elevated level is not a definitive diagnosis of malignancy. Pending cytology results. -Pending cytology results. Further recommendations to follow. -Brain CT without contrast no unusual findings. Abdominal pain -Suspect related to be fluid in the nodularity -Pain medications currently are adequate, continue. Multiple medications for prevention of narcotic induced constipation
[2024-11-28] MEDS: DOCUSATE 100 MG CAP PO SCH (20:00)
--- NOTE | 2024-11-29 01:29 | PN ---
PROGRESS NOTE DATE OF SERVICE: 11/28/2024 SUBJECTIVE: This is a 74-year-old woman, who presented with multiple medical issues, had elevated CA-125. The patient also had bilateral multiple complex ovarian cysts and multiple abnormalities in the ultrasound also. The patient is being evaluated for malignancy. The cytology from the ascitic paracentesis is pending at this time. The patient is still complaining of severe abdominal pain. PAST MEDICAL HISTORY: Reviewed. REVIEW OF SYSTEMS: A 14-point review of systems is negative except as mentioned earlier. CURRENT MEDICATIONS: Reviewed. PHYSICAL EXAMINATION: VITAL SIGNS: Pulse is 89, blood pressure 153/86, respirations 16. HEENT: Conjunctivae normal. NECK: No JVD. CARDIOVASCULAR: S1, S2. RESPIRATIONS: Breath sounds diminished at the bases. No rhonchi. No crackles. ABDOMEN: Soft, mild diffuse tenderness present. No guarding. No rigidity. LEGS: No edema. NERVOUS SYSTEM: Nonfocal. LABORATORY DATA: Reviewed. ASSESSMENT: 1. Diffuse abdominal pain, rule out moderate ascites and mesenteric edema, rule out peritoneal neoplasm. 2. Elevated CA-125, rule out ovarian cancer. 3. Moderate extrahepatic biliary dilatation, status post cholecystectomy. 4. Compression fracture of the T10 vertebra. 5. Bilateral ovarian cyst complex. 6. Hemorrhagic ascites, status post paracentesis. 7. Hypertension. 8. Osteoporosis. 9. History of colon polyps. 10.Multiple complex medical issues. 11.History of chronic diarrhea. RECOMMENDATIONS: Recommend to continue current management and continue symptomatic treatment. Repeat labs. Otherwise, await cytology. Other than that, closely follow with multiple consultants including Hematology, Oncology. Guarded prognosis because of multiple complex medical issues. Further recommendations to follow. See orders for further details. The patient might require FOIL WRAPPER evaluation also. MMODL / IJN: [id number] /
[2024-11-29 09:13] LABS: BUN/Creat Ratio 29.67 Ratio (12.00-20.00); Blood Urea Nitrogen 17.8 mg/dL (9.0-27.0); Calcium 9.3 mg/dL (8.7-10.3); Carbon Dioxide 23.8 mmol/L (21.6-31.8); Chloride 100 mmol/L (96-109); Glucose 115 mg/dL (70-110); Potassium 4.2 mmol/L (3.5-5.5); Sodium 137 mmol/L (135-145)
[2024-11-29 09:20] LABS: Basophils # (A) 0.07 X 10*3/uL (0.00-0.10); Basophils % (A) 0.9 %; Eosinophils # (A) 0.34 X 10*3/uL (0.04-0.35); Eosinophils % (A) 4.4 %; HCT 42.6 % (37.2-46.3); HGB 13.5 g/dL (12.0-15.0); Lymphocytes # (A) 3.47 X 10*3/uL (0.90-5.00); Lymphocytes % (A) 45.3 %; MCH 29.2 pg (27.0-32.0); MCHC 31.7 g/dL (32.0-37.0); Mean Platelet Volume 10.5 FL (9.5-12.2); Monocytes # (A) 0.88 X 10*3/uL (0.20-1.00); Monocytes % (A) 11.5 %; NRBC Per 100 WBC 0 X 10*3/uL (0.00-0.01); Neutrophils # (A) 2.89 X 10*3/uL (1.80-7.70); Neutrophils % (A) 37.8 %; Platelet Count 320 X 10*3/uL (140-440); RBC 4.63 X 10*6/uL (4.10-5.20); RDW 14.6 % (11.5-14.5); WBC 7.66 X 10*3/uL (4.50-10.00)
[2024-11-29] MEDS: IOPAMIDOL CONTRAST (ORAL USE) VIAL PO PRN (10:34)
--- NOTE | 2024-11-29 13:22 | CT ---
EXAMINATION TYPE: CT ChestAbdPelvis w con DATE OF EXAM: 11/29/2024 COMPARISON: MRCP [address] abdomen and pelvis 4 days ago. HISTORY: Abdominal pain, ovarian lesions. Elevated CA 125 CT DLP: 1242.6 mGycm. Automated Exposure Control for Dose Reduction was Utilized. CONTRAST: CT scan of the thorax, abdomen and pelvis is performed with oral and with IV Contrast, patient inject ed with 47 ml mL of Isovue 300. FINDINGS: LUNGS: The lungs are grossly clear, there is no concerning parenchymal mass or new focal consolidatio n identified. There is new Dependent atelectasis right lower lobe There is no pleural effusion or p neumothorax seen. The tracheobronchial tree is patent. MEDIASTINUM: There are no new greater than 1 cm hilar or mediastinal lymph nodes. Stable 1.3 x 1.0 c m lymph node anterior to the aortic arch image 17. No cardiomegaly or pericardial effusion is seen. Coronary artery calcification is redemonstrated. LIVER/GB: Cholecystectomy clips are redemonstrated. Common bile duct measures 11 mm similar to most r ecent MRCP. PANCREAS: No significant abnormality is seen. SPLEEN: No significant abnormality is seen. ADRENALS: No significant abnormality is seen. KIDNEYS: Roughly 2.0 cm simple appearing cortical cyst anteriorly left kidney delayed axial image 34 redemonstrated. BOWEL: Oral contrast reaches the cecum in the right midabdomen. No abnormal small or large bowel dila tation. GENITAL ORGANS: Anteverted uterus. Enlarged bilateral ovaries with at least 2 cystic lesions on the l eft and a cystic or cystic and solid lesion on the right. Right-sided lesion measures 5.4 x 4.0 cm im age 89. Findings were recently evaluated on pelvic ultrasound November 27. They can be better evaluate d and characterized with pelvic MRI desired. LYMPH NODES: Peritoneal studding and omental caking redemonstrated. No new definitive greater than 1 cm lymph nodes. OSSEOUS STRUCTURES: Moderate compression fracture at T8 level redemonstrated. Mild height loss and/or Schmorl nodes superior L2 level redemonstrated. Slight scoliotic curvature. OTHER: Small amount of ascites throughout the abdomen and the anterior pelvis. This is improved from most recent CT. There is reticulation and slight nodularity anteriorly redemonstrated. Findings suspi cious for peritoneal involvement. IMPRESSION: 1. Redemonstration of nonsimple cystic lesions in the bilateral ovaries. Small amount of ascites is i mproved from prior CT. Suspicious nodularity anteriorly remains present worrisome for peritoneal carc inomatosis. Consider ovarian etiology. Consider gynecology oncology referral based on clinical correl ation. No metastatic disease to the thorax. [facility], Workstation: [employer], 11/29/2024 1:19 PM
--- NOTE | 2024-11-29 22:57 | P.PN ---
Subjective Progress Note Date: 11/29/24 Principal diagnosis: Peritoneal nodularity and ascites In follow-up today patient is reporting that she feels well, is able to move around, pain is controlled on current analgesics. She would like to go home. No nausea or vomiting, she had a bowel movement today. She is still having episodes of intermittent abdominal pain. Pain medications are helping when these episodes of pain occur. No other acute complaints. Objective - Vital Signs Vital signs: Vital Signs Temp 97.4 F L 11/29/24 14:00 Pulse 88 11/29/24 14:00 Resp 19 11/29/24 14:00 BP 145/89 11/29/24 14:00 Pulse Ox 96 11/29/24 14:00 FiO2 Intake & Output 11/28/24 11/29/24 11/29/24 18:59 06:59 18:59 Intake Total 236 236 Balance 236 236 Intake: Oral 236 236 Other: Voiding Method Toilet Toilet # Voids 4 1 - Constitutional General appearance: Present: average body habitus, cooperative, no acute distress - EENT Eyes: Present: anicteric sclerae, EOMI ENT: Present: hearing grossly normal - Respiratory Respiratory: bilateral: CTA - Cardiovascular Rhythm: regular - Peripheral edema leg Peripheral Edema: bilateral: None - Gastrointestinal General gastrointestinal: Present: soft, tenderness - Integumentary Integumentary: Present: normal - Neurologic Neurologic: Present: CNII-XII intact - Musculoskeletal Musculoskeletal: Present: strength equal bilaterally - Psychiatric Psychiatric: Present: A&O x's 3, appropriate affect, intact judgment & insight - Labs CBC & Chem 7: 11/29/24 05:18 11/29/24 05:18 Labs: Abnormal Lab Results - Last 24 Hours (Table) 11/29/24 11/29/24 Range/Units 05:18 05:18 MCHC 31.7 L (32.0-37.0) g/dL RDW 14.6 H (11.5-14.5) % Anion Gap 13.20 H (4.00-12.00) mmol/L BUN/Creatinine Ratio 29.67 H (12.00-20.00) Ratio Glucose 115 H (70-110) mg/dL Microbiology - Last 24 Hours (Table) 11/26/24 16:20 Anaerobic Culture - Preliminary Paracentesis Fluid 11/26/24 16:20 Gram Stain - Preliminary Paracentesis Fluid Body Fluid Culture - Preliminary Assessment and Plan Plan: Nodularity seen on imaging in the abdomen, ascites -We have been consulted for concerns of possible malignancy. Workup is in process. -CT CAP concerning finding is the report of nodularity in the abdomen with edema. Transvaginal ultrasound reporting no discrete lesions of the uterus, limited visualization of the endometrium, enlarged right and left ovary with multiple and echoic lesions -Patient is status post MRCP reports bilateral enlarged ovaries with cysts no other significant findings, small amount of ascites -paracentesis, cytology pending -Ca 19 9 was already ordered, normal at 6.9. CA125 elevated at 529. This was reviewed with pt, elevated level is not a definitive diagnosis of malignancy. Pending cytology results. -Pending cytology results. Further recommendations to follow. -Brain CT without contrast no unusual findings. -Staging CT CAP wiht contrast ordered Abdominal pain -Suspect related to be fluid in the nodularity -Pain medications currently are adequate, continue. Multiple medications for prevention of narcotic induced constipation Pt is ok for DC once testing done and cleared by Attending and other consulting MDs. Plan for f/u with Med Onc in the next week
--- NOTE | 2024-11-30 04:15 | P.PN ---
Subjective Progress Note Date: 11/29/24 This is a 74-year-old female who was recently admitted with abdominal pain being followed by GI along with oncology. Patient underwent paracentesis with mild fluid and cytology is pending at this time. CT abdomen ordered per oncology for further evaluation. Patient reports abdominal pain is improved and is intermittent at times although controlled on current regimen. Awaiting these further testings and discussing with possible discharge planning in the next 24 hours. Patient is afebrile denies chest pain or shortness of breath. Patient has been tolerating diet without much of an appetite noted. Review of systems: Constitutional: No reports of fatigue, fever, or chills Cardiovascular: No reports of chest pain or palpitations Respiratory: No reports of shortness of breath or cough GI: No reports of nausea, no reports of vomiting, no diarrhea : No reports of dysuria or retention Neurovascular: No reports of generalized weakness All medications have been reviewed PHYSICAL EXAMINATION: GENERAL: The patient is alert and oriented x4, Well developed, elderly appearing, anxious, obese HEENT: Pupils are round and equally reacting to light. EOMI. no scleral icterus. No conjunctival pallor. Normocephalic, atraumatic. No pharyngeal erythema. No thyromegaly. CARDIOVASCULAR: S1 and S2 muffled PULMONARY: diminished breath sounds bilaterally with no wheezing or rhonchi noted. ABDOMEN: soft. Nontender on exam. obese. non-distended, normoactive bowel sounds. No palpable organomegaly. MUSCULOSKELETAL: No joint swelling or deformity. EXTREMITIES: No cyanosis, clubbing, or pedal edema. NEUROLOGICAL: Gross neurological examination did not reveal any focal deficits. SKIN: No rashes. 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 Patient will need outpatient follow-up and further testing and recommend gynecologic follow-up outpatient. 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 Continue with current pain regimen and supportive care Encouraged oral intake and small frequent meals Encouraged increase activity as tolerated Will discuss with other consultations regarding possible discharge planning in the next 24 hours Due to multiple complex medical issues, overall prognosis is guarded The impression and plan of care has been dictated by Nida Myers, nurse practitioner as directed. Dr. Julio C MD I have performed a history and examination and MDM of this patient, discussed the same with the dictator, and agree with the dictator's assessment and plan as written ,documented as a scribe. Based on total visit time, I have performed more than 50% of the visit. Any additional findings or plans will be noted. Objective - Vital Signs Vital signs: Vital Signs Temp 97.7 F 11/30/24 01:55 Pulse 91 11/30/24 01:55 Resp 16 11/30/24 01:55 BP 148/74 11/30/24 01:55 Pulse Ox 98 11/30/24 01:55 FiO2 Intake & Output 11/29/24 11/29/24 11/30/24 06:59 18:59 06:59 Intake Total 236 Balance 236 Intake: Oral 236 Other: Voiding Method Toilet Toilet # Voids 1 4 - Labs CBC & Chem 7: 11/29/24 05:18 11/29/24 05:18 Labs: Abnormal Lab Results - Last 24 Hours (Table) 11/29/24 11/29/24 Range/Units 05:18 05:18 MCHC 31.7 L (32.0-37.0) g/dL RDW 14.6 H (11.5-14.5) % Anion Gap 13.20 H (4.00-12.00) mmol/L BUN/Creatinine Ratio 29.67 H (12.00-20.00) Ratio Glucose 115 H (70-110) mg/dL Microbiology - Last 24 Hours (Table) 11/26/24 16:20 Anaerobic Culture - Preliminary Paracentesis Fluid 11/26/24 16:20 Gram Stain - Preliminary Paracentesis Fluid Body Fluid Culture - Preliminary
[2024-11-30 08:05] VITALS: RESP 17
--- NOTE | 2024-11-30 13:03 | P.PN ---
Subjective Progress Note Date: 11/30/24 SURGICAL PROGRESS NOTE CHIEF COMPLAINT: Abdominal pain HISTORY OF PRESENT ILLNESS: Patient sitting at edge of bed. She just received her cancer diagnosis by oncology team. She is understandably upset. She is able to tolerate diet. She does have abdominal pain intermittently. She is concerned about pain medication for home. She denies any nausea or vomiting. Afebrile. WBC is 7.6. 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 CT scan chest abdomen pelvis reports redemonstration of 9 s imple cystic lesions in bilateral ovaries. Small amount of ascites improved from prior CT. Suspicious nodularity anteriorly remains present worrisome for peritoneal carcinomatosis. Consider ovarian etiology. No metastatic disease of the thorax. PHYSICAL EXAM: VITAL SIGNS: Reviewed. GENERAL: Well-developed in no acute distress. ABDOMEN: Soft. Nondistended. NEUROLOGIC: Alert and oriented. Cranial nerves II through XII grossly intact. ASSESSMENT: 1. Abdominal pain 2. Mild to moderate free fluid throughout the abdomen and pelvis. Moderate mesenteric edema. Slight nodularity, peritoneal neoplasm not excluded. Cytology results positive for metastatic adenocarcinoma consistent with nonmucous ovarian versus primary peritoneal origin 3. Elevated CA125 level PLAN: -Patient can be discharged from surgical standpoint -Recommend follow-up with oncology outpatient -Pain management per oncology and medicine service Physician Senior Quality Assurance Engineer note has been reviewed by physician. Signing provider agrees with the documented findings, assessment, and plan of care. Objective - Vital Signs Vital signs: Vital Signs Temp 97.6 F 11/30/24 08:00 Pulse 84 11/30/24 08:00 Resp 17 11/30/24 08:00 BP 115/70 11/30/24 08:00 Pulse Ox 95 11/30/24 08:00 FiO2 Intake & Output 11/29/24 11/30/24 11/30/24 18:59 06:59 18:59 Intake Total 236 118 Balance 236 118 Intake: Oral 236 118 Other: Voiding Method Toilet Toilet # Voids 4 1 - Labs CBC & Chem 7: 11/29/24 05:18 11/29/24 05:18 Labs: Microbiology - Last 24 Hours (Table) 11/26/24 16:20 Gram Stain - Preliminary Paracentesis Fluid Body Fluid Culture - Preliminary 11/26/24 16:20 Anaerobic Culture - Preliminary Paracentesis Fluid
[2024-11-30 15:26] VITALS: BP 131/72; PULSE 82; TEMP 97.4
--- NOTE | 2024-12-01 12:34 | P.PN ---
Subjective Progress Note Date: 11/30/24 In follow-up today patient is reporting that she feels well, is able to move around, pain is controlled on current analgesics. She would like to go home. No nausea or vomiting, tolerating oral intake. She is still having episodes of intermittent abdominal pain. Pain medications are helping when these episodes of pain occur. No other acute complaints Objective - Vital Signs Vital signs: Vital Signs Temp 97.6 F 11/30/24 08:00 Pulse 84 11/30/24 08:00 Resp 17 11/30/24 08:00 BP 115/70 11/30/24 08:00 Pulse Ox 95 11/30/24 08:00 FiO2 Intake & Output 11/29/24 11/30/24 11/30/24 18:59 06:59 18:59 Intake Total 236 118 Balance 236 118 Intake: Oral 236 118 Other: Voiding Method Toilet Toilet # Voids 4 1 - Constitutional General appearance: Present: average body habitus, no acute distress - EENT Eyes: Present: anicteric sclerae, EOMI ENT: Present: hearing grossly normal - Respiratory Details: breathing is even and unlabored - Cardiovascular Details: skin warm and dry - Integumentary Integumentary: Absent: cyanotic, jaundiced - Neurologic Neurologic: Present: CNII-XII intact - Musculoskeletal Musculoskeletal: Present: strength equal bilaterally - Psychiatric Psychiatric: Present: A&O x's 3 - Labs CBC & Chem 7: 11/29/24 05:18 11/29/24 05:18 Labs: Microbiology - Last 24 Hours (Table) 11/26/24 16:20 Gram Stain - Preliminary Paracentesis Fluid Body Fluid Culture - Preliminary 11/26/24 16:20 Anaerobic Culture - Preliminary Paracentesis Fluid Assessment and Plan (1) Abdominal pain Status: Acute Code(s): R10.9 - UNSPECIFIED ABDOMINAL PAIN SNOMED Code(s): 09158679 (2) Ascites Status: Acute Code(s): R18.8 - OTHER ASCITES SNOMED Code(s): 785305326 Plan: Nodularity seen on imaging in the abdomen, ascites -We have been consulted for concerns of possible malignancy. Workup is in process. -CT CAP concerning finding is the report of nodularity in the abdomen with edema. Transvaginal ultrasound reporting no discrete lesions of the uterus, limited visualization of the endometrium, enlarged right and left ovary with multiple and echoic lesions -Patient is status post MRCP reports bilateral enlarged ovaries with cysts no other significant findings, small amount of ascites -S/p paracentesis, cytology ordered -Ca 19 9 was already ordered, normal at 6.9. CA125 elevated at 529. This was reviewed with pt, elevated level is not a definitive diagnosis of malignancy. -Brain CT without contrast no unusual findings. -Staging CT CAP revealed redemonstration of nonsimple cystic lesions in the bilateral ovaries. Small amount of ascites which is improved from prior CT. Suspicious nodularity anteriorly remains concerning for peritoneal carcinomatosis. No metastatic disease noted within thorax -Peritoneal/pelvic fluid cytology was found to be positive for metastatic adenocarcinoma consistent with non-mucinous ovarian versus primary peritoneal origin. Based on above findings, most consistent with metastatic ovarian cancer. Discussed findings with patient today. All questions and concerns were addressed Patient has follow-up scheduled with Dr. Lonnie Harper on 12/07. Will further discuss findings, treatment options and goals of care at that time. Will also place referral to gynecological oncology Abdominal pain -Suspect related to ascites and peritoneal nodularity -Pain medications currently are adequate. Multiple medications for prevention of narcotic induced constipation -IV pains meds converted to PO regimen, discussed with PharmSapna. Connor script sent from clinic Case discussed with admitting team today. Pt is cleared for discharge from hem/onc standpoint. Clinic f/u scheduled
--- NOTE | 2024-12-03 11:32 | P.DS ---
Providers Date of admission: 11/26/24 14:20 Expected date of discharge: 11/30/24 Attending physician: Marcelo Bunch Consults: 11/26/24 00:09 Consult Physician Routine Consulting Provider: Shaun Alva Consult Reason/Comments: abd pain Do you want consulting provider notified?: Yes 11/26/24 14:18 Consult Physician Routine Consulting Provider: Emeli Harper Consult Reason/Comments: malignancy?? 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 Patient will follow-up with Dr. Walker in the outpatient setting upon discharge. Patient is to continue with outpatient follow-up with oncology as scheduled. Total time taken is greater than 35 minutes. Hospital course This is a 74-year-old female who was recently admitted with with abdominal pain being closely monitored with surgery and oncology following. Patient did have ascites status post paracentesis with cytology and is positive for metastatic adenocarcinoma ovarian versus peritoneal primary. Patient will need outpatient follow up with pcp as well as oncology outpatient and care navigator onc. Patient has been cleared by consultations. Please refer to consult notes for further HPI. Currently no reports of chest pain, shortness of breath, or palpitations. Patient is afebrile. No reports of nausea or vomiting and patient is tolerating diet. Patient will be discharged home today. guarded prognosis. Physical exam: Gen: This is a 74 year old female who is awake, alert and oriented x3, well developed, opese. HEENT: Head is atraumatic, normocephalic. Pupils equal, round. Sclerae is anicteric. NECK: Supple. No JVD. No lymphadenopathy. No thyromegaly. LUNGS: Clear to auscultation. No wheezes or rhonchi. No intercostal retractions. HEART: Regular rate and rhythm. No murmur. ABDOMEN: Soft. Bowel sounds are present. No masses. No tenderness. EXTREMITIES: No pedal edema. No calf tenderness. NEUROLOGICAL: Patient is awake, alert and oriented x3. Cranial nerves 2 through 12 are grossly intact. Please refer to medication reconciliation sheet for a list of medications. The impression and plan of care has been dictated by Nida Myers, Nurse Practitioner as directed. Dr. Julio C MD I have performed a history and examination and MDM of this patient, discussed the same with the dictator, and agree with the dictator's assessment and plan as written ,documented as a scribe. Based on total visit time, I have performed more than 50% of the visit. Patient Condition at Discharge: Fair Plan - Discharge Summary New Discharge Prescriptions: New Magnesium Hydroxide [Milk of Magnesia] 2,400 mg PO BID PRN #0 ml PRN Reason: Constipation Docusate [Colace] 100 mg PO BID #60 cap Continue Irbesartan/Hydrochlorothiazide [Irbesartan-Hctz 300-12.5 mg Tb] 1 tab PO HS Multivitamins, Thera [Multivitamin (formulary)] 1 tab PO DAILY Cholecalciferol [Vitamin D3 (25 Mcg = 1000 Iu)] 25 mcg PO DAILY Calcium Carbonate [Calcium] 1,200 mg PO DAILY Discharge Medication List Cholecalciferol [Vitamin D3 (25 Mcg = 1000 Iu)] 25 mcg PO DAILY 11/05/22 [History] Irbesartan/Hydrochlorothiazide [Irbesartan-Hctz 300-12.5 mg Tb] 1 tab PO HS 11/05/22 [History] Calcium Carbonate [Calcium] 1,200 mg PO DAILY 11/26/24 [History] Multivitamins, Thera [Multivitamin (formulary)] 1 tab PO DAILY 11/26/24 [History] Docusate [Colace] 100 mg PO BID #60 cap 11/30/24 [Rx] Magnesium Hydroxide [Milk of Magnesia] 2,400 mg PO BID PRN #0 ml 11/30/24 [Rx] Follow up Appointment(s)/Referral(s): Emeli Harper MD [STAFF PHYSICIAN] - 12/07/24 9:00 am Eric Walker DO [Primary Care Provider] - 1-2 days Patient Instructions/Handouts: Abdominal Pain (ED) Activity/Diet/Wound Care/Special Instructions: Activity limited until follow-up Follow-up with primary care provider on discharge Follow-up with oncology outpatient as scheduled RETURN FOR WORSENING SYMPTOMS, PROBLEMS, OR CONCERNS, Discharge Disposition: HOME SELF-CARE
== END 2024-11-30 16:45 | disposition home or self-care (01) | DRG 755 ==
LOC: EC 22:07 → 6NMEDSUR 11-26 00:10 → OBSVTOIN 11-26 14:20 → 6NMEDSUR 11-26 20:30
PROVIDERS: ADMIT Hospitalist; ATTEND Hospitalist
PROC: 0W9G3ZZ Drainage of Peritoneal Cavity, Percutaneous Approach (ICD-10-PCS; principal; 2024-11-26)
DX: C56.3 Malignant neoplasm of bilateral ovaries (principal); C78.6 Secondary malignant neoplasm of retroperitoneum and peritoneum; R18.8 Other ascites; M48.54XA Collapsed vertebra, not elsewhere classified, thoracic region, initial encounter for fracture; K76.6 Portal hypertension; E66.9 Obesity, unspecified; I10 Essential (primary) hypertension; Z68.33 Body mass index [BMI] 33.0-33.9, adult; K63.5 Polyp of colon; K76.0 Fatty (change of) liver, not elsewhere classified; K80.20 Calculus of gallbladder without cholecystitis without obstruction; M81.0 Age-related osteoporosis without current pathological fracture; R97.1 Elevated cancer antigen 125 [CA 125]; N28.1 Cyst of kidney, acquired; N83.201 Unspecified ovarian cyst, right side; N83.202 Unspecified ovarian cyst, left side; Z85.43 Personal history of malignant neoplasm of ovary; Z86.0100 Personal history of colon polyps, unspecified; Z90.49 Acquired absence of other specified parts of digestive tract; Z98.51 Tubal ligation status
CPT/HCPCS: 36415; 49083; 70450; 71250; 71260; 74176; 74177; 74181; 76700; 76830; 76856; 80048; 80053; 81001; 82042; 82150; 83605; 83690; 83735; 84100; 84157; 85025; 85610; 85652; 85730; 86140; 86301; 86304; 87070; 87075; 87205; 88108; 88305; 88341; 88342; 89050; 96361; 96374; 96375; 96376; 99285

== ENCOUNTER 2025-01-16 12:51 | Day surgery (SDC) | payer MEDICARE ==
--- NOTE | 2025-01-16 13:22 | US ---
EXAMINATION TYPE: US discontinued paracentesis DATE OF EXAM: 01/16/2025 1:18 PM COMPARISON: 11/26/2024 prior paracentesis. CLINICAL INDICATION:Female, 74 years old with history of R18.8 OTHER ASCITES; , ascites PROCEDURE: Pre-paracentesis imaging fails demonstrate adequate fluid for paracentesis and therefore t he procedure was discontinued. A small pocket of ascites is seen within the right upper quadrant. IMPRESSION: As above [facility], , 01/16/2025 1:20 PM
== END 2025-01-16 13:20 | disposition home or self-care (01) ==
LOC: RADPROMAIN 12:51
PROVIDERS: ATTEND Internal Medicine
DX: Z53.8 Procedure and treatment not carried out for other reasons (principal); R18.8 Other ascites
CPT/HCPCS: 76705

== ENCOUNTER → 2025-02-11 | Outpatient (CLI) | payer MEDICARE ==
[2025-02-11 12:05] LABS: African American GFR (CKD) >90 (>60 ml/min/1.73 sqM); Blood Urea Nitrogen 22 mg/dL (7-17); Non-African American GFR(CKD) >90 (>60 ml/min/1.73 sqM)
--- NOTE | 2025-02-11 14:24 | CT ---
EXAMINATION TYPE: CT ChestAbdPelvis w con CT DLP: 1224.90 mGycm, Automated exposure control for dose reduction was used. DATE OF EXAM: 02/11/2025 1:20 PM COMPARISON: CT chest abdomen and pelvis 11/29/2024, CT chest 11/26/2024, 02/14/2022, CT abdomen and pelv is 11/25/2024 CLINICAL INDICATION:Female, 75 years old with history of C56.9 MALIGNANT NEOPLASM OF UNSPECIFIED OVAR Y; PHH, OVARIAN CA Technique: Multiple axial images of the chest, abdomen, and pelvis were obtained following the intrav enous administration of 100 mL Isovue-300. Two-dimensional coronal and sagittal reconstructions were obtained. Findings: CHEST: LUNGS/ PLEURA: No pleural effusion, pneumothorax, or focal consolidation. Mild right lower lobe depen dent subsegmental atelectasis. No suspicious pulmonary nodule or mass. AIRWAY: Patent and unremarkable.. HEART: Size within normal limits.No pericardial effusion. Minimal coronary artery calcifications. De nse mitral annulus calcifications. MEDIASTINUM: Stable 1.1 x 1.0 cm lymph node anterior to the aortic arch in the prevascular space. Sta ble dating back to 2021 and considered benign. No new mediastinal or hilar adenopathy. VASCULATURE: No aortic aneurysm. Mild atherosclerotic calcification of the aortic arch. MUSCULOSKELETAL: No acute osseous abnormalities. Mild bilateral AC joint arthropathy. Multilevel dege nerative disc disease. Similar moderate compression fracture at the T8 level. Similar probable Schmor l's node involving the superior endplate of the T11 vertebral body. Slight scoliotic curvature. Stabl e sclerotic focus involving the T12 vertebral body likely representing a benign bone island. Remote h ealed mediastinal fracture. SOFT TISSUES/LYMPH NODES: Unremarkable. LOWER NECK: Subcentimeter hypodense left thyroid lobe nodule. ABDOMEN: ABDOMEN LIVER: Unremarkable GALLBLADDER AND BILE DUCTS: The gallbladder is surgically absent. Similar dilatation of the common b ile duct measuring up to 11 mm. PANCREAS: Unremarkable. SPLEEN: Unremarkable. ADRENAL GLANDS: Unremarkable. KIDNEYS AND URETERS: No evidence of hydronephrosis or renal calculus. The kidneys enhance symmetrical ly. Left renal lower pole cyst with largest measuring up to 2.1 cm. Contrast is demonstrated within b oth collecting systems on the delayed phase. PELVIS BLADDER: Incompletely distended but grossly unremarkable. REPRODUCTIVE: Anteverted uterus redemonstrated. Slight increased size of right ovarian cystic lesion measuring 5.9 x 5.0 centimeters. Previously measured 5.4 x 4.0 cm. Decreased size of left ovarian cys tic lesion measuring up to 2.4 cm, previously measured up to 4.2 cm. ABDOMEN & PELVIS STOMACH AND BOWEL: Stomach and duodenum are unremarkable. No focal bowel wall thickening. No evidence of bowel obstruction. PERITONEUM/RETROPERITONEUM: No evidence of pneumoperitoneum. Decrease peritoneal studding/omental cak ing from prior CT. Most pronounced in the left anterior mid abdominal omentum. VASCULATURE: Mild atherosclerotic calcifications are present throughout the abdominal aorta and its b ranches. No abdominal aortic aneurysm. MUSCULOSKELETAL: No acute osseous abnormalities. No aggressive osseous lesion. Similar mild height lo ss and/or Schmorl's node involving the superior L2 level. Slight sclerotic curvature. LYMPH NODES: No evidence for lymphadenopathy. SOFT TISSUE/ABDOMINAL WALL: Small fat filled umbilical hernia. IMPRESSION: Slightly increased size of right ovarian cystic lesion with decreased size of left ovarian cystic les ion. Again corresponding to reported ovarian malignancy. Resolution of previously demonstrated ascite s with decreased omental caking again suspicious for peritoneal carcinomatosis. No definitive evidenc e for metastatic disease within the chest. [facility], , 02/11/2025 2:21 PM
== END | disposition home or self-care (01) ==
LOC: RADCTMAIN 10:45
PROVIDERS: ATTEND Internal Medicine
DX: C56.9 Malignant neoplasm of unspecified ovary (principal); I10 Essential (primary) hypertension; Z71.3 Dietary counseling and surveillance; N83.202 Unspecified ovarian cyst, left side; N83.201 Unspecified ovarian cyst, right side
CPT/HCPCS: 82565; 84520; 71260; 74177; 36415; Q9967

== ENCOUNTER → 2025-02-20 | Outpatient (CLI) | payer MEDICARE ==
--- NOTE | 2025-02-20 14:21 | MM ---
Reason for Exam: Screening (asymptomatic). Last mammogram was performed 1 year(s) and 4 month(s) ago. Patient History: Menarche at age 15. First Full-Term at age 22. Postmenopausal. 1979, Benign Excisional Biopsy on the right side. Risk Values: María 5 year model risk: 1.9%. NCI Lifetime model risk: 4.6%. Prior Study Comparison: 12/20/2019 Bilateral Screening Mammogram, [facility]. 08/05/2022 Bilateral MG 3D screening mammo w/cad, [facility]. 11/04/2023 Bilateral MG 3D screening mammo w/cad, [facility]. Tissue Density: The breasts are heterogeneously dense, which may obscure small masses. Findings: Analyzed By CAD. There is no suspicious group of microcalcifications or new suspicious mass in either breast. Overall Assessment: Benign, BI-RAD 2 Management: Screening Mammogram of both breasts in 1 year. . Patient should continue monthly self-breast exams. A clinical breast exam by your physician is recommended on an annual basis. This exam should not preclude additional follow-up of suspicious palpable abnormalities. Note on María scores and lifetime risk: 1. A María score greater than 3% is considered moderate risk. If this is the case, consider specialist referral to assess eligibility for a risk reducing agent. 2. If overall lifetime risk for the development of breast cancer is 20% or higher, the patient may qualify for future screening with alternating mammogram and breast MRI. [facility], , 02/20/2025 2:18 PM. Electronically signed and approved by: Abbe Rouse M.D. Radiolog[facility]
== END | disposition home or self-care (01) ==
LOC: RADMAMWWP 13:59
PROVIDERS: ATTEND Family Medicine
DX: Z12.31 Encounter for screening mammogram for malignant neoplasm of breast (principal); R92.333 Mammographic heterogeneous density, bilateral breasts; Z78.0 Asymptomatic menopausal state
CPT/HCPCS: 77063; 77067